=== PATIENT | male | born 1955 | race Caucasian/White ===

== ENCOUNTER 2020-05-10 14:42 | Emergency (ER) | payer SELFPAY ==
[2020-05-10 15:31] VITALS: BP 119/77; PULSE 82; RESP 18; TEMP 36.7; O2SAT 96; BMI 24.6
[2020-05-10 16:10] LABS: Blood Urine Neg (Negative); Glucose Urine UA Norm (Normal); Ketones Urine 1+ (Negative); Nitrate Urine Negative (Negative); Protein Urine Neg (Negative); Urine Appearance Clear (CLEAR); Urine Color Orange (Yellow); pH Urine 5 (5-7)
[2020-05-10 16:11] LABS: Add Urine Microscopic? YES; Bilirubin Urine 2+ (NEGATIVE); Leukocyte Esterase Urine Trace (Negative); Urobilinogen Urine 8 mg/dL (Negative)
[2020-05-10 16:19] LABS: Bacteria Urine TRACE; Mucus Urine 1+; Squamous Epithelial Cell Urine RARE (0-5); WBC Urine 0-4 /hpf (0-5)
[2020-05-10 16:20] LABS: Add Urine Culture? No
[2020-05-10 16:57] LABS: Basophils # 0.1 10^3/uL (0.0-0.1); Basophils % 0.9 %; Eosinophils # 0.5 10^3/uL (0.0-0.8); Eosinophils % 6.6 %; Hematocrit 43.1 % (42.0-52.0); Hemoglobin 14.2 g/dL (11.7-16.6); Lymphocytes # 1.4 10^3/uL (0.8-4.8); Lymphocytes % 16.7 %; Mean Corpuscular HGB Conc 32.9 g/dL (30.0-36.0); Mean Corpuscular Hemoglobin 32.9 pg (28.0-34.0); Mean Corpuscular Volume 99.8 fL (80-94); Mean Platelet Volume 10.1 fL (7.4-10.4); Monocytes # 0.8 10^3/uL (0.2-0.9); Monocytes % 10.4 %; Neutrophils # 5.26 10^3/uL (1.8-7.7); Neutrophils % 65.2 %; Nucleated Red Blood Cells % 0 %; Platelet Count 290 10^3/cmm (130-400); Red Blood Count 4.32 10^6/uL (4.1-5.3); Red Cell Distribution Width 13.5 % (12.1-15.1); White Blood Count 8.1 10^3/uL (4.0-10.0)
[2020-05-10 17:25] LABS: Alanine Aminotransferase 207 U/L (0-41); Albumin Level 4.3 g/dL (3.5-5.2); Alkaline Phosphatase 510 IU/L (40-130); Anion Gap 19.9 (5-19); Aspartate Amino Transferase 327 U/L (0-40); Blood Urea Nitrogen 19 mg/dL (8-23); Calcium 9.1 mg/dL (8.5-10.5); Carbon Dioxide 21 mmol/L (22-29); Chloride 105 mmol/L (98-107); Globulin 2.2 g/dL (1.3-4.6); Glomerular Filtration Rate 67.4 mL/min (90-130); Glucose 92 mg/dL (65-115); Osmolality Calculated 290 mOsm/kg (285-295); Potassium 3.9 mmol/L (3.5-5.1); Sodium 142 mmol/L (136-145); Total Bilirubin 5.2 mg/dL (0.15-1.2); Total Protein 6.5 g/dL (6.6-8.7)
--- NOTE | 2020-05-10 18:33 | XRR_ITS ---
PROCEDURE INFORMATION: Exam: XR Abdomen, 1 View Exam date and time: 05/10/2020 6:34 PM Age: 64 years old Clinical indication: Abnormal findings; Abnormal lab test; Other: Hematuria TECHNIQUE: Imaging protocol: XR of the abdomen. Views: Frontal supine view of the abdomen. 1 View. COMPARISON: CT Abdomen/Pelvis Renal 10407 03/02/2015 8:51 AM FINDINGS: Gastrointestinal tract: Normal. No bowel dilation. There is a moderate amount of colonic stool. No impaction. There are phleboliths in the pelvis. No nephrolithiasis. Bones/joints: Unremarkable. XR/XR KUB [id number] IMPRESSION: No acute findings.
--- NOTE | 2020-05-10 18:43 | W.ED.MALEGU ---
HPI - Male Genitourinary General: Chief complaint: Urogenital-Male Stated complaint: blood in urine Time Seen by Provider: 05/10/20 18:29 History of Present Illness: HPI Narrative: Patient comes in with some mild left flank pain and noticeable blood in the urine. Patient reports he continues to be a little tender in the left flank but thinks that the blood has improved. Patient appears well. Patient appears in mild pain. Review of Systems General: Reports: 10 or more systems reviewed and unremarkable except in HPI and below : Reports: flank pain Physical Exam Const: COMMON NORMALS: no acute distress and patient oriented x3 GENERAL APPEARANCE: cooperative HENMT: COMMON NORMALS: normocephalic and Normal external nose present HEAD & SCALP: normal to inspection and normocephalic NOSE: Normal external nose present MOUTH: Normal oral and palatal mucosa present THROAT: posterior oropharynx normal Eye: GENERAL EYE: appearance normal, both eyes and all related structures Neck/C-Spine: COMMON NORMALS: full ROM Chest: COMMONS NORMALS: normal inspection of the chest Resp: COMMON NORMALS: normal respiratory effort EFFORT & INSPECTION: Yes able to speak in complete sentences Cardio: COMMON NORMALS: regular rate and regular rhythm RATE: regular rate RHYTHM: regular rhythm GI: COMMON NORMALS: non-tender : COMMON NORMALS: Yes no CVA tenderness BLADDER/KIDNEY EXAM: Yes no CVA tenderness Back/Pelvis: COMMON NORMALS: no CVA tenderness and thoracic and lumbar spine normal to inspection Extremity: COMMON NORMALS: normal to inspection Neuro: COMMON NORMALS: patient oriented x3 and moves all extremities Psych: COMMON NORMALS: mental status grossly normal and cooperative Skin: COMMON NORMALS: no rashes or lesions noted GENERAL SKIN EXAM: no rashes or lesions noted Course Vital Signs: Vital signs: Vital Signs Temperature 98.0 F 05/10/20 15:31 Pulse Rate 74 05/10/20 18:54 Respiratory Rate 14 05/10/20 18:54 Blood Pressure 156/83 05/10/20 18:54 Pulse Oximetry 96 05/10/20 18:54 MDM - Male MDM Narrative: Medical decision making narrative: Patient comes in today with complaints of left flank pain, and blood in urine. Patient appears well. Patient appears in no acute distress. Abdomen was soft nontender. Mild left CVA tenderness was noted on palpation. Differential diagnosis includes but not limited to renal calculi, pyelonephritis, urinary tract infection. Laboratory values noted some white blood cells in the urine but no obvious blood. CBC was normal. CMP was unremarkable, except for some elevated liver enzymes. KUB noted some renal calculi on the left side. Patient's history and pain suggest renal colic. Laboratory values is questionable for some mild liver disease or gallbladder disease. Reviewed exam with patient recommendations for treatment and follow-up. Patient reported understanding of care plan. Lab Data: Labs: Lab Results 05/10/20 05/10/20 05/10/20 Range/Units 15:45 16:21 16:21 WBC 8.1 (4.0-10.0) 10^3/ uL RBC 4.32 (4.1-5.3) 10^6/u L Hgb 14.2 (11.7-16.6) g/dL Hct 43.1 (42.0-52.0) % MCV 99.8 H (80-94) fL MCH 32.9 (28.0-34.0) pg MCHC 32.9 (30.0-36.0) g/dL RDW 13.5 (12.1-15.1) % Plt Count 290 (130-400) 10^3/c mm MPV 10.1 (7.4-10.4) fL Neut % (Auto) 65.2 % Lymph % (Auto) 16.7 % [place] % (Auto) 10.4 % Eos % (Auto) 6.6 % Baso % (Auto) 0.9 % Neut # (Auto) 5.26 (1.8-7.7) 10^3/u L Lymph # (Auto) 1.4 (0.8-4.8) 10^3/u L [place] # (Auto) 0.8 (0.2-0.9) 10^3/u L Eos # (Auto) 0.5 (0.0-0.8) 10^3/u L Baso # (Auto) 0.1 (0.0-0.1) 10^3/u L Nucleated RBC % (a uto) 0 % Nucleated RBCs # 0.0 /100WBC Sodium 142 (136-145) mmol/L Potassium 3.9 (3.5-5.1) mmol/L Chloride 105 (98-107) mmol/L Carbon Dioxide 21 L (22-29) mmol/L Anion Gap 19.9 H (5-19) BUN 19 (8-23) mg/dL Creatinine 1.1 (0.7-1.2) mg/dL GFR Calculation 67.4 L (90-130) mL/min Glucose 92 (65-115) mg/dL Calculated Osmolal ity 290 (285-295) mOsm/k g Calcium 9.1 (8.5-10.5) mg/dL Total Bilirubin 5.2 H (0.15-1.2) mg/dL AST 327 H (0-40) U/L ALT 207 H (0-41) U/L Alkaline Phosphata se 510 H (40-130) IU/L Total Protein 6.5 L (6.6-8.7) g/dL Albumin 4.3 (3.5-5.2) g/dL Globulin 2.2 (1.3-4.6) g/dL Urine Color [place] (Yellow) Urine Appearance Clear (CLEAR) Urine pH 5 (5-7) Ur Specific Gravit y 1.020 (1.005-1.030) Urine Protein Neg (Negative) Urine Glucose (UA) Norm (Normal) Urine Ketones 1+ H (Negative) Urine Blood Neg (Negative) Urine Nitrate Negative (Negative) Urine Bilirubin 2+ H (NEGATIVE) Urine Urobilinogen 8 H (Negative) mg/dL Ur Leukocyte Lois ase Trace H (Negative) Urine RBC None (0-2) /hpf Urine WBC 0-4 H (0-5) /hpf Ur Squamous Epith Cells Rare (0-5) Amorphous Sediment Not Reportable Urine Bacteria Trace (NONE) Urine Mucus 1+ Discharge Plan Discharge Patient Disposition: Home Clinical Impression: Renal colic on left side Condition: Stable Prescriptions: New tamsulosin 0.4 mg capsule 0.4 mg PO DAILY Qty: 10 RF: 0 hydrocodone-acetaminophen 5-325 mg tablet 1 tab PO Q6H PRN (Reason: pain) Qty: 10 RF: 0 ondansetron HCl 4 mg tablet 4 mg PO Q8H PRN (Reason: nausea and vomiting) Qty: 7 RF: 0 cephalexin 500 mg capsule 500 mg PO Q8H 7 Days Qty: 21 RF: 0 Discharge Orders: Discharge Order (Routine); Ordered 05/10/20 Ordered By: Aiden Horn Referrals: Bridgett Garay MD [Primary Care Provider] - Discharge Diet: Usual diet Discharge Activity: Increase activity as tolerated Patient Instructions: Kidney Stones (ED) Activity Restrictions/Additional Instructions: Drink plenty of fluids. Take medications as directed. Follow-up with urologist for further treatment. Case management order was placed to help with follow-up with the urologist. Return to the emergency department for high fever or uncontrolled symptoms. Follow-up with primary care as needed. Discharge Date/Time: 05/10/20 18:55 Coding Level of Care Code ED Supply Aide for Chg Fwd Exam Comprehensive
[2020-05-10 18:54] VITALS: BP 156/83; PULSE 74; RESP 14; O2SAT 96
== END 2020-05-10 18:55 | disposition home or self-care (01) ==
PROVIDERS: Family Medicine; Emergency Provider Nurse Practitioner Family; PCP Family Medicine
DX: N23 Unspecified renal colic (principal)
CPT/HCPCS: 12345; 36415; 74018; 80053; 81001; 85025; 99281; 99283

== ENCOUNTER 2020-11-21 11:38 | Outpatient (CLI) | payer MEDICARE, SELFPAY ==
--- NOTE | 2020-11-21 11:52 | XR_ITS ---
WS: [id number] Exam: XR chest 2V* [id number] Date/Time of Exam: 11/21/2020 11:52 AM Reason For Exam: PECTUS EXCAVATUM/DYSPNEA ON EXERTION Comparison 08/15/2016. The lungs are hyperinflated and clear. Unremarkable cardiomediastinal structures. Several old left ri b fractures are noted. No pleural effusions. Pectus excavatum deformity. Increased thoracic kyphosis. XR/XR chest 2V* [id number] IMPRESSION: 1. No acute cardiopulmonary finding. 2. Pectus excavatum.
== END 2020-11-21 11:39 | disposition home or self-care (01) ==
PROVIDERS: PCP Family Medicine; Visit Provider Nurse Practitioner Family
DX: R06.09 Other forms of dyspnea (principal); Q67.6 Pectus excavatum
CPT/HCPCS: 71046

== ENCOUNTER 2022-06-03 12:57 | Outpatient (CLI) | payer MEDICARE, SELFPAY ==
--- NOTE | 2022-06-03 13:35 | PFTS_ITS ---
Date of Study:06/03/22 Date of Dictation: MECHANICS: Forced vital capacity (FVC) is . Forced expiratory volume in one second (FEV1) is . FEV1/FVC is . FLOW VOLUME LOOP: . LUNG VOLUMES: Total lung capacity (TLC) is . Residual volume (RV) is . DIFFUSING CAPACITY FOR CARBON MONOXIDE: . INTERPRETATION: The pulmonary function tests are . mechanics and lung volumes. Gas exchange (DLCO) is . MTDD
== END 2022-06-03 12:58 | disposition home or self-care (01) ==
LOC: RT 12:59
PROVIDERS: PCP Family Medicine; Visit Provider Family Medicine
DX: R09.3 Abnormal sputum (principal); R06.09 Other forms of dyspnea
CPT/HCPCS: 94060; J7611

== ENCOUNTER 2022-07-05 11:42 | Emergency (ER) | payer MEDICARE, SELFPAY ==
[2022-07-05 11:46] VITALS: BP 115/78; PULSE 99; RESP 18; TEMP 36.6; O2SAT 98; BMI 251.7
--- NOTE | 2022-07-05 12:02 | XRR_ITS ---
PROCEDURE INFORMATION: Exam: XR Chest Exam date and time: 07/05/2022 12:24 PM Age: 66 years old Clinical indication: Shortness of breath; Additional info: SOB, dizziness TECHNIQUE: Imaging protocol: Radiologic exam of the chest. Views: 2 views. COMPARISON: CR XR chest 2V* [id number] 11/21/2020 12:11 PM FINDINGS: Lungs: Unremarkable. No consolidation. Pleural spaces: Unremarkable. No pleural effusion. No pneumothorax. Heart/Mediastinum: Unremarkable. No cardiomegaly. Bones/joints: There is generalized osteopenia seen. The dorsal spine shows 2 mid dorsal spine compression fractures. These findings were present on prior examination. There is chronic left rib fractures present stable since prior rib 5 and 6. XR/XR chest 2V* [id number] IMPRESSION: 1. No acute findings. 2. Severe dorsal spine osteopenia. 3. Mid dorsal spine fractures. 4. Multiple chronic left post rib fractures.
--- NOTE | 2022-07-05 12:03 | ECG_ITS ---
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 Measurements Intervals [place] Rate: 92 P: 66 MA: 158 QRS: -52 QRSD: 70 T: 75 QT: 345 QTc: 427 Interpretive Statements SINUS RHYTHM WITH OCCASIONAL ECTOPIC PREMATURE COMPLEXES LOW QRS VOLTAGE IN PRECORDIAL LEADS [QRS DEFLECTION < 1.0 mV IN CHEST LEADS] LEFT ANTERIOR FASCICULAR BLOCK [QRS AXIS <= -45, QR IN I, RS IN II] Compared to ECG 08/15/2016 16:36:37 Left anterior fascicular block now present T-wave abnormality no longer present Electronically Signed On 07-05-2022 21:21:35 CDT by Gisele Real M.D. [id number] f
--- NOTE | 2022-07-05 12:05 | ED_ITS ---
HPI - Dizziness General: Chief Complaint: Dizziness Stated Complaint: Chest Pain Time Seen by Provider: 07/05/22 11:55 History of Present Illness: HPI Narrative: 66-year-old male presents with complaints of dizziness. Patient reports that he describes the dizziness as a feeling of syncope. Every time he stands up he feels like he is going to pass out. Patient complains that he has had some mild chest pain on and off but he has reflux and seems similar to that. He is not currently having chest pain. Patient has some mild shortness of breath. He does have a history of COPD and just was started on Symbicort. Patient denies any fever or chills. He does have some congestion and reports that he feels like he just got over an upper respiratory illness. Patient reports that if he moves his head or sitting there he does not have his symptoms only when he stands. Associated symptoms: Reports chest pain and nasal congestion; Denies chills, headache(s), nausea, palpitations or vomiting Associated neuro symptoms: Deny numbness in extremities Review of Systems Const: Reports: fatigue; Denies: fever(s) or chills Eyes: Denies: change in vision or blurry vision ENMT: Reports: nasal congestion; Denies: throat pain Card: Reports: chest pain and pre-syncope; Denies: palpitations or irregular heart rhythm Resp: Reports: dyspnea and chest congestion; Denies: wheezing GI: Denies: abdominal pain, nausea or vomiting Musc: Denies: neck pain or back pain Skin/Breast: Denies: rash Neuro: Reports: weakness in extremities; Denies: headache(s), numbness in extremities or lack of coordination Psych: Denies: anxiety or depression Physical Exam Const: COMMON NORMALS: no acute distress, average body habitus and patient oriented x3 HENMT: COMMON NORMALS: normocephalic, atraumatic and hearing grossly normal bilaterally HEAD & SCALP: normocephalic and atraumatic Eye: COMMON NORMALS: Equal, round and reactive pupils present and EOMs intact bilaterally PUPIL: Yes Equal, round and reactive pupils present Neck/C-Spine: COMMON NORMALS: no JVD Resp: COMMON NORMALS: normal respiratory effort, No retractions and No use of accessory muscles AUSCULTATION: diminished lung sounds (Mild diffuse) Cardio: COMMON NORMALS: no JVD and regular rate RATE: regular rate GI: COMMON NORMALS: Soft to palpation and non-tender PALPATION: Yes Soft to palpation Extremity: COMMON NORMALS: normal to inspection, full ROM and capillary refill normal Neuro: COMMON NORMALS: patient oriented x3, moves all extremities and no focal motor deficits Psych: COMMON NORMALS: Normal thought process present and cooperative THOUGHT PROCESS: Normal thought process present Skin: COMMON NORMALS: no rashes or lesions noted and no wounds GENERAL SKIN EXAM: no rashes or lesions noted Course Vital Signs: Vital signs: Vital Signs Temperature 97.8 F 07/05/22 11:46 Pulse Rate 80 07/05/22 13:29 Respiratory Rate 16 07/05/22 13:26 Blood Pressure 113/75 07/05/22 12:37 Pulse Oximetry 95 07/05/22 13:26 Oxygen Delivery Me thod 07/05/22 13:26 MDM - Dizziness Medical Decision Making Patient is feeling significant better following treatment with a breathing treatment some IV fluids. He request discharge home. Patient with no troponin changes. Labs show no acute findings. 2 EKG shows no significant changes. Recommend patient follow-up with a primary care provider in the next couple days. Patient stable discharged home Lab Data : 07/05/22 12:25 07/05/22 12:25 Radiology Impressions Chest X-Ray 07/05/22 12:02 IMPRESSION: 1. No acute findings. 2. Severe dorsal spine osteopenia. 3. Mid dorsal spine fractures. 4. Multiple chronic left post rib fractures. Laboratory Results WBC 10.2 10^3/uL (4.0-10.0) H 07/05/22 12:25 RBC 4.96 10^6/uL (4.1-5.3) 07/05/22 12:25 Hgb 16.8 g/dL (11.7-16.6) H 07/05/22 12:25 Hct 48.4 % (42.0-52.0) 07/05/22 12:25 MCV 97.6 fl (80-94) H 07/05/22 12:25 MCH 33.9 pg (28.0-34.0) 07/05/22 12:25 MCHC 34.7 g/dL (30.0-36.0) 07/05/22 12:25 RDW 11.8 % (12.1-15.1) L 07/05/22 12:25 Plt Count 270 10^3/cmm (130-400) 07/05/22 12:25 MPV 9.8 fL (7.4-10.4) 07/05/22 12:25 Neut % (Auto) 74.3 % 07/05/22 12:25 Lymph % (Auto) 16.8 % 07/05/22 12:25 [place] % (Auto) 8.1 % 07/05/22 12:25 Eos % (Auto) 0.1 % 07/05/22 12:25 Baso % (Auto) 0.4 % 07/05/22 12:25 Neut # (Auto) 7.54 10^3/uL (1.8-7.7) 07/05/22 12:25 Lymph # (Auto) 1.7 10^3/uL (0.8-4.8) 07/05/22 12:25 [place] # (Auto) 0.8 10^3/uL (0.2-0.9) 07/05/22 12:25 Eos # (Auto) 0.0 10^3/uL (0.0-0.8) 07/05/22 12:25 Baso # (Auto) 0.0 10^3/uL (0.0-0.1) 07/05/22 12:25 Nucleated RBC % (auto) 0 % 07/05/22 12:25 Nucleated RBCs # 0.0 /100WBC 07/05/22 12:25 Sodium 138 mmol/L (136-145) 07/05/22 12:25 Potassium 3.9 mmol/L (3.5-5.1) 07/05/22 12:25 Chloride 105 mmol/L (98-107) 07/05/22 12:25 Carbon Dioxide 20 mmol/L (22-29) L 07/05/22 12:25 Anion Gap 16.9 (5-19) 07/05/22 12:25 BUN 15 mg/dL (8-23) 07/05/22 12:25 Creatinine 0.8 mg/dL (0.7-1.2) 07/05/22 12:25 GFR Calculation 96.7 mL/min (90-130) 07/05/22 12:25 Glucose 83 mg/dL (65-115) 07/05/22 12:25 Calculated Osmolality 286 mOsm/kg (285-295) 07/05/22 12:25 Calcium 9.0 mg/dL (8.5-10.5) 07/05/22 12:25 Magnesium 1.8 mg/dL (1.7-2.3) 07/05/22 12:25 Total Bilirubin 0.6 mg/dL (0.15-1.2) 07/05/22 12:25 AST 19 U/L (0-40) 07/05/22 12:25 ALT 14 U/L (0-41) 07/05/22 12:25 Alkaline Phosphatase 74 U/L (40-130) 07/05/22 12:25 Troponin T Baseline 14 ng/L (0-15) 07/05/22 12:25 Troponin T 120 Minute 13.96 ng/L (0-15) 07/05/22 14:14 C-Reactive Protein 3.0 mg/L (0.0-4.9) 07/05/22 12:25 Total Protein 6.2 g/dL (6.6-8.7) L 07/05/22 12:25 Albumin 3.9 g/dL (3.5-5.2) 07/05/22 12:25 Globulin 2.3 g/dL (1.3-4.6) 07/05/22 12:25 EKG Data EKG 1: I personally reviewed and interpreted this EKG as follows: EKG interpretation date: 07/05/22 EKG interpretation time: 12:04 Interpretation: Ventricular rate 92, sinus rhythm, ectopic premature complexes. MA 158, QTc 394., Left ventricular fascicular block. No acute ST or T wave changes EKG 2: I personally reviewed and interpreted this EKG as follows: EKG interpretation date: 07/05/22 EKG interpretation time: 14:38 Interpretation: Heart rate 77, sinus rhythm, occasional premature complexes, no significant changes from prior EKG. MA 165 QRS 73 QTc 422. Discharge Plan Discharge Condition: Stable Prescriptions: No Action NyQuil 7.5-60-30-1,000 mg/30 mL Liquid 30 ml PO Q4H PRN (Reason: unknown) Tylenol Ex Str Rapid Release 500 mg Tablet 1,000 mg PO Q6H PRN (Reason: Pain) famotidine 20 mg tablet 20 mg PO QAM cyclobenzaprine 5 mg tablet 5 mg PO TID PRN (Reason: Muscle Spasm) Symbicort 160-4.5 mcg/actuation HFA aerosol inhaler 2 puff INHALATION BID Referrals: Autumn Roman DO [Primary Care Provider] - Coding Level of Care Code ED Arch Cushion Press Operator for Chg Fwd Exam Comprehensive
[2022-07-05 12:35] LABS: Basophils % 0.4 %; Eosinophils % 0.1 %; Hematocrit 48.4 % (42.0-52.0); Hemoglobin 16.8 g/dL (11.7-16.6); Lymphocytes # 1.7 10^3/uL (0.8-4.8); Lymphocytes % 16.8 %; Mean Corpuscular HGB Conc 34.7 g/dL (30.0-36.0); Mean Corpuscular Hemoglobin 33.9 pg (28.0-34.0); Mean Corpuscular Volume 97.6 fl (80-94); Mean Platelet Volume 9.8 fL (7.4-10.4); Monocytes # 0.8 10^3/uL (0.2-0.9); Monocytes % 8.1 %; Neutrophils # 7.54 10^3/uL (1.8-7.7); Neutrophils % 74.3 %; Nucleated Red Blood Cells % 0 %; Platelet Count 270 10^3/cmm (130-400); Red Blood Count 4.96 10^6/uL (4.1-5.3); Red Cell Distribution Width 11.8 % (12.1-15.1); White Blood Count 10.2 10^3/uL (4.0-10.0)
[2022-07-05 12:37] VITALS: BP 113/75; PULSE 91; RESP 19; O2SAT 94
[2022-07-05 12:55] LABS: Alanine Aminotransferase 14 U/L (0-41); Albumin Level 3.9 g/dL (3.5-5.2); Alkaline Phosphatase 74 U/L (40-130); Blood Urea Nitrogen 15 mg/dL (8-23); Carbon Dioxide 20 mmol/L (22-29); Chloride 105 mmol/L (98-107); Globulin 2.3 g/dL (1.3-4.6); Glomerular Filtration Rate 96.7 mL/min (90-130); Glucose 83 mg/dL (65-115); Magnesium 1.8 mg/dL (1.7-2.3); Osmolality Calculated 286 mOsm/kg (285-295); Sodium 138 mmol/L (136-145); Total Bilirubin 0.6 mg/dL (0.15-1.2); Total Protein 6.2 g/dL (6.6-8.7)
[2022-07-05 12:58] LABS: Troponin(5th) Baseline 14 ng/L (0-15)
[2022-07-05 13:01] LABS: Anion Gap 16.9 (5-19); Potassium 3.9 mmol/L (3.5-5.1)
[2022-07-05 13:02] LABS: Aspartate Amino Transferase 19 U/L (0-40)
[2022-07-05] MEDS: ipratropium-albuterol 3 mL Neb INHALATION (13:25)
[2022-07-05 13:26] VITALS: PULSE 72; RESP 16; O2SAT 95
[2022-07-05 13:29] VITALS: PULSE 80
[2022-07-05] MEDS: sodium chloride 0.9% 1,000 ML 999 ML IV (13:33)
--- NOTE | 2022-07-05 14:03 | ECG_ITS ---
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 Measurements Intervals [place] Rate: 77 P: 72 AK: 165 QRS: 27 QRSD: 73 T: 66 QT: 390 QTc: 443 Interpretive Statements SINUS RHYTHM WITH OCCASIONAL ECTOPIC PREMATURE COMPLEXES SEPTAL MYOCARDIAL INFARCTION , OF INDETERMINATE AGE [40+ ms Q WAVE IN V1/V2] Compared to ECG 08/15/2016 16:36:37 Myocardial infarct finding now present T-wave abnormality no longer present Electronically Signed On 07-05-2022 21:33:59 CDT by Gisele Real M.D. [id number]
[2022-07-05 14:39] LABS: Troponin 5 2HR 13.96 ng/L (0-15)
[2022-07-05 15:04] VITALS: BP 102/75; PULSE 80; O2SAT 96
[2022-07-05 16:16] LABS: Troponin 5 2HR Delta -0.04 ABS# (0-10)
== END 2022-07-05 15:05 | disposition home or self-care (01) ==
PROVIDERS: Emergency Provider Student in an Organized Health Care Education/Training Program; PCP Family Medicine
DX: R07.9 Chest pain, unspecified (principal); R42 Dizziness and giddiness
CPT/HCPCS: 36415; 71046; 80053; 83735; 84484; 85025; 86140; 93005; 94640; 96360; 99285; J7030

== ENCOUNTER 2022-10-24 05:50 | Observation (INO) | payer MEDICARE, SELFPAY ==
[2022-10-24] VITALS (31 sets, daily range): BP systolic 90–140; BP diastolic 49–91; PULSE 57–150; RESP 13–25; TEMP 36.9–37.1; O2SAT 93–100; BMI 24.3; BMI 26.2
--- NOTE | 2022-10-24 05:51 | XRR_ITS ---
PROCEDURE INFORMATION: Exam: XR Chest Exam date and time: 10/24/2022 6:08 AM Age: 67 years old Clinical indication: Pain; Chest pressure; Additional info: Cp TECHNIQUE: Imaging protocol: Radiologic exam of the chest. Views: 1 view. COMPARISON: CR XR chest 2V* [id number] 07/05/2022 12:24 PM FINDINGS: Lungs: Emphysema. Lungs are well aerated without a focal area of consolidation. Pleural spaces: Unremarkable. No pleural effusion. No pneumothorax. Heart/Mediastinum: Unremarkable. No cardiomegaly. Bones/joints: Unremarkable. XR/XR chest 1V portable [id number] IMPRESSION: Lungs are well aerated without a focal area of consolidation.
--- NOTE | 2022-10-24 05:57 | ECG_ITS ---
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 Measurements Intervals [place] Rate: 165 P: 0 SD: 0 QRS: 33 QRSD: 71 T: 104 QT: 274 QTc: 454 Interpretive Statements ATRIAL FIBRILLATION WITH RAPID VENTRICULAR RESPONSE WITH ABERRANT CONDUCTION OR VENTRICULAR PREMATURE COMPLEXES LOW QRS VOLTAGE [QRS DEFLECTION < 0.5/1.0 mV IN LIMB/CHEST LEADS] SEPTAL MYOCARDIAL INFARCTION , OF INDETERMINATE AGE [40+ ms Q WAVE IN V1/V2] CRITICAL TEST RESULT Compared to ECG 07/05/2022 14:37:19 Ventricular premature complex(es) now present Aberrant conduction of supraventricular beat(s) now present Low QRS voltage now present Sinus rhythm no longer present Myocardial infarct finding still present Electronically Signed On 10-24-2022 11:19:22 BEAN SNAPPER by Randy Melton M.D. [id number]
[2022-10-24] MEDS: dilTIAZem 5 mg/mL SDV 5 mL 10 MG IVP (06:14)
[2022-10-24] MEDS: sodium chloride 0.9% 1,000 ML 999 ML IV ×2 (06:14→08:38)
[2022-10-24] MEDS: dilTIAZem 100 MG in sodium chloride 0.9% (add-van) 100 ML IV (06:24)
[2022-10-24 06:29] LABS: Basophils # 0.1 10^3/uL (0.0-0.1); Basophils % 0.7 %; Eosinophils % 0.4 %; Hematocrit 48.5 % (42.0-52.0); Hemoglobin 16.6 g/dL (11.7-16.6); Lymphocytes # 2.2 10^3/uL (0.8-4.8); Mean Corpuscular HGB Conc 34.2 g/dL (30.0-36.0); Mean Corpuscular Hemoglobin 34.4 pg (28.0-34.0); Mean Corpuscular Volume 100.4 fl (80-94); Mean Platelet Volume 9.8 fL (7.4-10.4); Monocytes # 0.7 10^3/uL (0.2-0.9); Monocytes % 10.3 %; Neutrophils % 57.5 %; Nucleated Red Blood Cells % 0 %; Platelet Count 216 10^3/cmm (130-400); Red Blood Count 4.83 10^6/uL (4.1-5.3); Red Cell Distribution Width 11.6 % (12.1-15.1)
[2022-10-24 06:50] LABS: Troponin(5th) Baseline 17 ng/L (0-15)
[2022-10-24 07:00] LABS: Alanine Aminotransferase 19 U/L (0-41); Albumin Level 4.5 g/dL (3.5-5.2); Alkaline Phosphatase 82 U/L (40-130); Anion Gap 23.1 (5-19); Aspartate Amino Transferase 45 U/L (0-40); Blood Urea Nitrogen 20 mg/dL (8-23); Calcium 9.8 mg/dL (8.5-10.5); Carbon Dioxide 21 mmol/L (22-29); Chloride 97 mmol/L (98-107); Creatine Phosphokinase 178 U/L (39-308); Globulin 2.3 g/dL (1.3-4.6); Glomerular Filtration Rate 96.4 mL/min (90-130); Glucose 118 mg/dL (65-115); NT Pro B Type Natriuretic Pept 308 pg/mL (0-125); Osmolality Calculated 288 mOsm/kg (285-295); Potassium 4.1 mmol/L (3.5-5.1); Sodium 137 mmol/L (136-145); Total Bilirubin 0.6 mg/dL (0.15-1.2); Total Protein 6.8 g/dL (6.6-8.7)
--- NOTE | 2022-10-24 07:00 | ED_ITS ---
HPI - Chest Pain General: Chief Complaint: Chest Pain Stated Complaint: CP Time Seen by Provider: 10/24/22 06:08 History of Present Illness: This patient is a 67 year old presenting with chest pain, near syncope. His symptoms woke him from sleep at around midnight. He can feel his heart racing. He has had chest pain before - but never the heart racing. He says that he has not had the feeling like he is going to pass out before, but was seen her in June with chest pain and reported the same feeling of nearly passing out on that visit. He says that he was told he had bad heartburn at that time. He has never had a stress test. He feels short of breath. He denies fever, cough. He has a history of COPD - denies smoking, but did smoke in the past. He denies other medical history - denies HTN, DM. Denies recent illness. Physical Exam Const: COMMON NORMALS: patient oriented x3, no limitations and alert GENERAL APPEARANCE: cooperative and anxious HENMT: HEAD & SCALP: normal to inspection FACE & SINUS: normal facial exam Eye: GENERAL EYE: appearance normal, both eyes and all related structures Neck/C-Spine: COMMON NORMALS: supple, no meningeal signs and no JVD Chest: COMMONS NORMALS: normal inspection of the chest Resp: EFFORT & INSPECTION: Yes tachypneic AUSCULTATION: wheezes scattered wheezes and upper bilaterally Cardio: COMMON NORMALS: no JVD, No murmurs present (Cardio) and Peripheral pulses 2+ throughout RATE: tachycardic RHYTHM: abnormal rhythm irregularly irregular PERIPHERAL PULSES: Peripheral pulses 2+ throughout GI: COMMON NORMALS: Normal to inspection, nondistended, normoactive bowel sounds present, Soft to palpation and non-tender INSPECTION: Yes normal to inspection AUSCULTATION: Yes normoactive bowel sounds PALPATION: Yes Soft to palpation Back/Pelvis: COMMON NORMALS: thoracic and lumbar spine normal to inspection Extremity: COMMON NORMALS: normal to inspection and no pedal edema Neuro: COMMON NORMALS: patient oriented x3, moves all extremities, no focal motor deficits and no sensory deficits noted SENSORIUM/ORIENTATION: Yes alert MENINGEAL SIGNS: Yes no meningeal signs Psych: COMMON NORMALS: mental status grossly normal, cooperative and normal affect Skin: COMMON NORMALS: no rashes or lesions noted and turgor normal GENERAL SKIN EXAM: no rashes or lesions noted and turgor normal Course Vital Signs: Vital signs: Vital Signs Temperature 98.7 F 10/24/22 05:55 Pulse Rate 77 10/24/22 09:49 Respiratory Rate 14 10/24/22 09:49 Blood Pressure 95/54 10/24/22 09:49 Pulse Oximetry 96 10/24/22 09:49 Oxygen Delivery Me thod 10/24/22 09:49 MDM - Chest Pain Medical Decision Making Patient with Afib and RVR, associated with chest pain on going since midnight. Symptomatic orthostasis which does not fully resolve with laying down. Initial BP 140, repeats in the 90's and at times in the 80's. IV fluids started, then cardizem - small doses due to low BP. HR down from 160 - 120's. BP remaining 80's to 90's. Sat 99% and CP improved somewhat. Patient was given 2 liters of fluid while on the cardizem drip - to help maintain his BP. His mental status remained good. He did convert to sinus rhythm - no evidence of ischemia on repeat EKG and neg troponin and delta. He reported that his CP resolved, but he continued to feel badly. His BP continued to run low - 90 to 110. I looked at prior visits and his baseline BPs are 130 - 140 systolic. He sees a PCP at [facility]. He has not had a cardiac evaluation other than the ED evaluation in June. Due to his persistent hypotension after 2 liters of fluid and conversion to sinus rhythm, I added a lactic and CT chest for PE, CT abd/pelvis to look for evidence of infection - all that was negative for acute findings. Due to his severe symptoms on presentation, and continued hypotension and malaise in the ED, I plan to admit to the hospitalist for further evaluation. Dr. Pelaez accepted for the CSU. He is not currently on cardizem due to the low BP, and in light that he converted to sinus. Lab Data 10/24/22 06:00 10/24/22 06:00 Radiology Impressions Chest X-Ray 10/24/22 05:51 IMPRESSION: Lungs are well aerated without a focal area of consolidation. Chest/Abdomen/Pelvis CT 10/24/22 08:40 IMPRESSION: 1. No dissection. No visualized embolism as characterized to the segmental level. 2. Apical fibrosis. Paraseptal emphysema. Minimal atelectasis right lung base greater than left. No focal consolidation. IMPRESSION: 1. Appendix normal. 2. No acute intra-abdominal process. No inflammatory process. No obstruction. 3. No free fluid within the pelvis or within the dependent portions of the peritoneum. COMMENTS: Consistent with the [place] [employer]'s Incidental Findings Committee white paper (J Am Britney Radiol 2018): Any incidental renal lesion less than 1 cm or classified as too small to characterize, or any incidental cystic renal lesion characterized as simple-appearing, is likely benign. No follow-up imaging is recommended for these lesions per consensus recommendations based on imaging criteria. Laboratory Results WBC 7.0 10^3/uL (4.0-10.0) 10/24/22 06:00 RBC 4.83 10^6/uL (4.1-5.3) 10/24/22 06:00 Hgb 16.6 g/dL (11.7-16.6) 10/24/22 06:00 Hct 48.5 % (42.0-52.0) 10/24/22 06:00 MCV 100.4 fl (80-94) H 10/24/22 06:00 MCH 34.4 pg (28.0-34.0) H 10/24/22 06:00 MCHC 34.2 g/dL (30.0-36.0) 10/24/22 06:00 RDW 11.6 % (12.1-15.1) L 10/24/22 06:00 Plt Count 216 10^3/cmm (130-400) 10/24/22 06:00 MPV 9.8 fL (7.4-10.4) 10/24/22 06:00 Neut % (Auto) 57.5 % 10/24/22 06:00 Lymph % (Auto) 31.0 % 10/24/22 06:00 [place] % (Auto) 10.3 % 10/24/22 06:00 Eos % (Auto) 0.4 % 10/24/22 06:00 Baso % (Auto) 0.7 % 10/24/22 06:00 Neut # (Auto) 4.00 10^3/uL (1.8-7.7) 10/24/22 06:00 Lymph # (Auto) 2.2 10^3/uL (0.8-4.8) 10/24/22 06:00 [place] # (Auto) 0.7 10^3/uL (0.2-0.9) 10/24/22 06:00 Eos # (Auto) 0.0 10^3/uL (0.0-0.8) 10/24/22 06:00 Baso # (Auto) 0.1 10^3/uL (0.0-0.1) 10/24/22 06:00 Nucleated RBC % (auto) 0 % 10/24/22 06:00 Nucleated RBCs # 0.0 /100WBC 10/24/22 06:00 Sodium 137 mmol/L (136-145) 10/24/22 06:00 Potassium 4.1 mmol/L (3.5-5.1) 10/24/22 06:00 Chloride 97 mmol/L (98-107) L 10/24/22 06:00 Carbon Dioxide 21 mmol/L (22-29) L 10/24/22 06:00 Anion Gap 23.1 (5-19) H 10/24/22 06:00 BUN 20 mg/dL (8-23) 10/24/22 06:00 Creatinine 0.8 mg/dL (0.7-1.2) 10/24/22 06:00 GFR Calculation 96.4 mL/min (90-130) 10/24/22 06:00 Glucose 118 mg/dL (65-115) H 10/24/22 06:00 Calculated Osmolality 288 mOsm/kg (285-295) 10/24/22 06:00 Lactic Acid 2.0 mmol/L (0.5-2.2) 10/24/22 09:15 Calcium 9.8 mg/dL (8.5-10.5) 10/24/22 06:00 Total Bilirubin 0.6 mg/dL (0.15-1.2) 10/24/22 06:00 AST 45 U/L (0-40) H 10/24/22 06:00 ALT 19 U/L (0-41) 10/24/22 06:00 Alkaline Phosphatase 82 U/L (40-130) 10/24/22 06:00 Creatine Kinase 178 U/L (39-308) 10/24/22 06:00 Troponin T Baseline 17 ng/L (0-15) H 10/24/22 06:00 Troponin T 120 Minute 16.87 ng/L (0-15) H 10/24/22 07:49 Delta Troponin T -0.13 ABS# (0-10) L 10/24/22 07:49 NT-Pro-B Natriuret Pep 308 pg/mL (0-125) H 10/24/22 06:00 Total Protein 6.8 g/dL (6.6-8.7) 10/24/22 06:00 Albumin 4.5 g/dL (3.5-5.2) 10/24/22 06:00 Globulin 2.3 g/dL (1.3-4.6) 10/24/22 06:00 Lipase 45 U/L (13-60) 10/24/22 06:00 Critical Care Time Critical Care Time: Critical Care Time: Yes Total Critical Care Time: 40 Attestation: See MDM notes above for course of treatment, management of life threatening condition Discharge Plan Discharge Patient Disposition: Placed in Observation Admit Provider: Spencer Parker Clinical Impression: Chest pain, Near syncope, Atrial fibrillation with rapid ventricular response, Atrial fibrillation, new onset, Acute hypotension Condition: Stable Coding Level of Care Code ED Mixer And Scaler for Jani Fwd Exam Comprehensive
--- NOTE | 2022-10-24 07:32 | ECG_ITS ---
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 Measurements Intervals [place] Rate: 113 P: 0 MS: 0 QRS: 0 QRSD: 0 T: 153 QT: 245 QTc: 337 Interpretive Statements SINUS RHYTHM INDETERMINATE AXIS MODERATE ST DEPRESSION [0.05+ mV ST DEPRESSION] ABNORMAL QRS-T ANGLE [QRS-T AXIS DIFFERENCE > 60] Compared to ECG 10/24/2022 05:59:13 Indeterminate axis now present ST (T wave) deviation now present Atrial fibrillation no longer present Myocardial infarct finding no longer present Electronically Signed On 10-24-2022 11:19:02 STORE CUSTODIAN by Randy Melton M.D. [id number]
--- NOTE | 2022-10-24 07:51 | ECG_ITS ---
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 Measurements Intervals [place] Rate: 82 P: 142 IA: 203 QRS: 12 QRSD: 149 T: 40 QT: 405 QTc: 474 Interpretive Statements SINUS RHYTHM INTRAVENTRICULAR CONDUCTION DELAY [130+ ms QRS DURATION] Compared to ECG 10/24/2022 07:32:24 Intraventricular conduction delay now present Supraventricular tachycardia no longer present Indeterminate axis no longer present ST (T wave) deviation no longer present Electronically Signed On 10-24-2022 11:31:43 SPEEDER OPERATOR by Randy Melton M.D. [id number]
[2022-10-24 08:19] LABS: Troponin 5 2HR 16.87 ng/L (0-15)
[2022-10-24] MEDS: ondansetron 2 mg/ML SDV 2 mL 4 MG IVP (08:38)
--- NOTE | 2022-10-24 08:40 | CTR_ITS ---
PROCEDURE INFORMATION: Exam: CTA Chest With Contrast Exam date and time: 10/24/2022 8:47 AM Age: 67 years old Clinical indication: Abdominal pain; Generalized; Angina pectoris; Additional info: Hypotension, chest pain TECHNIQUE: Imaging protocol: Computed tomographic angiography of the chest with contrast. 3D rendering (Not supervised by radiologist): MIP and/or 3D reconstructed images were created by the technologist. Radiation optimization: All CT scans at this facility use at least one of these dose optimization techniques: automated exposure control; mA and/or kV adjustment per patient size (includes targeted exams where dose is matched to clinical indication); or iterative reconstruction. Contrast material: OMNI 350; Contrast volume: 100 ml; Contrast route: INTRAVENOUS (IV); Other protocol: This patient has received [address] and 0 known cardiac nuclear medicine studies in the 12 months prior to the current study. COMPARISON: CR (CHEST, ) 10/24/2022 6:08 AM RADIATION DOSE METRICS: Total DLP (mGy-cm): 869.25 FINDINGS: Pulmonary arteries: Normal. No pulmonary emboli. Aorta: Calcification of the aorta. Lungs: Apical fibrosis. Paraseptal emphysema. Pleural spaces: Unremarkable. No pneumothorax. No pleural effusion. Heart: No pericardial effusion Mediastinal space: thoracic inlet is unremarkable. Lymph nodes: Numerous small nonspecific lymph nodes in the mediastinum Bones/joints: Pectus excavatum. Degenerative changes are present within the spine. Numerous old rib fractures on the left posteriorly. Severe compression fracture anterior and middle columns of T7 and to a lesser degree T6. No retropulsed fragment. Soft tissues: Soft tissues of the mediastinum appear unremarkable. Other findings: No dissection. No visualized embolism as characterized to the segmental level. COMMENTS: In the absence of a history or active diagnosis of lung cancer, it is recommended that this patient with emphysema be evaluated for enrollment in a low dose CT lung cancer screening program. PROCEDURE INFORMATION: Exam: CT Abdomen And Pelvis With Contrast Exam date and time: 10/24/2022 8:47 AM Age: 67 years old Clinical indication: Abdominal pain; Generalized; Angina pectoris; Additional info: Hypotension, chest pain TECHNIQUE: Imaging protocol: Computed tomography of the abdomen and pelvis with contrast. Radiation optimization: All CT scans at this facility use at least one of these dose optimization techniques: automated exposure control; mA and/or kV adjustment per patient size (includes targeted exams where dose is matched to clinical indication); or iterative reconstruction. Contrast material: OMNI 350; Contrast volume: 100 ml; Contrast route: INTRAVENOUS (IV); Other protocol: This patient has received [address] and 0 known cardiac nuclear medicine studies in the 12 months prior to the current study. COMPARISON: CR XR KUB [id number] 05/10/2020 6:33 PM RADIATION DOSE METRICS: Total DLP (mGy-cm): 869.25 FINDINGS: Liver: Normal. No mass. Gallbladder and bile ducts: Normal. No calcified stones. No ductal dilation. Pancreas: Normal. No ductal dilation. Spleen: Normal. No splenomegaly. Adrenal glands: Nodularity left adrenal gland. 15 mm. Hounsfield units 29. Indeterminate. Kidneys and ureters: 1 cm cyst lower pole right kidney Stomach and bowel: Unremarkable. No obstruction. No mucosal thickening. Appendix: Appendix normal. Intraperitoneal space: No acute intra-abdominal process. No inflammatory process. No obstruction. No free fluid within the pelvis or within the dependent portions of the peritoneum. Vasculature: Flow within the superior mesenteric artery, celiac trunk and inferior mesenteric arteries. Lymph nodes: Unremarkable. No enlarged lymph nodes. Urinary bladder: Unremarkable as visualized. Reproductive: Calcifications of the seminal vesicles suggestive of diabetes mellitus. Correlate. Bones/joints: Unremarkable. No acute fracture. Soft tissues: Pectoralis excavatum. Fat containing inguinal hernia on the right CT/CT angio chest w abd pel w con IMPRESSION: 1. No dissection. No visualized embolism as characterized to the segmental level. 2. Apical fibrosis. Paraseptal emphysema. Minimal atelectasis right lung base greater than left. No focal consolidation. IMPRESSION: 1. Appendix normal. 2. No acute intra-abdominal process. No inflammatory process. No obstruction. 3. No free fluid within the pelvis or within the dependent portions of the peritoneum. COMMENTS: Consistent with the [place] [employer]'s Incidental Findings Committee white paper (J Am Britney Radiol 2018): Any incidental renal lesion less than 1 cm or classified as too small to characterize, or any incidental cystic renal lesion characterized as simple-appearing, is likely benign. No follow-up imaging is recommended for these lesions per consensus recommendations based on imaging criteria.
[2022-10-24] MEDS: iohexol 350 mg/mL 500 mL Btl (per mL) IV (08:52)
[2022-10-24 08:58] LABS: Troponin 5 2HR Delta -0.13 ABS# (0-10)
[2022-10-24 09:08] LABS: Lipase 45 U/L (13-60)
--- NOTE | 2022-10-24 11:12 | PC.NURSE ---
Attempted report to CSU. Nurse to call back.
--- NOTE | 2022-10-24 11:51 | ECG_ITS ---
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 Measurements Intervals [place] Rate: 157 P: 0 [place]: 0 QRS: 14 QRSD: 72 T: 80 QT: 274 QTc: 443 Interpretive Statements ATRIAL FIBRILLATION WITH RAPID VENTRICULAR RESPONSE LOW QRS VOLTAGE [QRS DEFLECTION < 0.5/1.0 mV IN LIMB/CHEST LEADS] SEPTAL MYOCARDIAL INFARCTION , OF INDETERMINATE AGE [40+ ms Q WAVE IN V1/V2] Compared to ECG 10/24/2022 05:57:46 Ventricular premature complex(es) no longer present Aberrant conduction of supraventricular beat(s) no longer present Myocardial infarct finding still present Electronically Signed On 10-24-2022 11:32:51 PRODUCT MANUFACTURING PROFESSIONAL by Randy Melton M.D. [id number]
[2022-10-24 12:49] LABS: Troponin 5 6HR 19.98 ng/L (0-15)
[2022-10-24 12:51] LABS: Troponin 5 6HR Delta 2.98 ng/L (0-12)
--- NOTE | 2022-10-24 13:56 | USCV_ITS ---
Abel Perez Age: 67 Gender: M : 1955 Exam Date: 10/24/2022 14:24 Ordering Phys: Spencer Parker MD Technologist: JENNIFER [place]am [place] [facility] [place]: afib BP: / HR: 65 Rhythm: Atrial fibrillation Technical Quality: Adequate MEASUREMENTS (Male / Female) Normal Values 2D ECHO LVOT Diameter 2.2 cm LV Ejection Fraction MOD 2C 62.3 % LV Ejection Fraction 2C AL 62.3 % LA Diameter 3.0 cm IVC Diameter 1.1 cm M-MODE Aortic Annulus Diameter 2.5 cm LA Ao Ratio MM 1.5 MV E Point Septal Separation 0.1 cm DOPPLER AV Peak Velocity 113.0 cm/s LVOT Peak Velocity 111.0 cm/s AV Area Cont Eq vti 3.8 cm squared AV Area Cont Eq pk 3.7 cm squared MV Area PHT 3.9 cm squared Mitral E to A Ratio 1.0 MV E' Velocity 39.5 cm/s Mitral E to MV E' Ratio 6.4 Mitral E to LV E' Lateral Ratio 7.8 Mitral E to LV E' Septal Ratio 5.4 TV Peak E Velocity 54.0 cm/s PV Peak Velocity 84.0 cm/s FINDINGS Left Ventricle Left ventricle is normal in size. LV systolic function is normal with EF of 55 to 60%. No regional wall motion abnormalities are seen. Right Ventricle Normal in size and function Right Atrium Normal in size Left Atrium Normal in size Mitral Valve Structurally normal mitral valve. Mild mitral regurgitation. Aortic Valve Aortic valve is thickened. No significant stenosis or regurgitation. Tricuspid Valve Not well visualized Pulmonic Valve Not well visualized Pericardium Normal Aorta Normal in size IVC Appears to be normal CONCLUSIONS Technically limited quality echocardiogram because of poor ultrasonic windows. LV systolic function is normal with EF of 55 to 60% Mild mitral regurgitation No comparison studies are available. Randy Melton MD (Electronically Signed) Final Date: 24 October 2022 19:45 S
--- NOTE | 2022-10-24 14:02 | P.HP_ITS ---
Providers/Chief Complaint Admitting Physician: Spencer Parker MD Primary Care Provider: Autumn Roman DO Chief Complaint: CP History of Present Illness Abel Perez is a 67 year old male with past medical history of COPD not on inhalers or oxygen, chronic with smoker, chronic alcohol use with up to 4 shots of hard liquor per day presents to the ER today because of ongoing chest uneasiness and pain for last few days getting worse today morning along with difficulty in breathing. In the ER he was found to be in A. fib with rapid ventricular response with slight hypotension which was treated with IV fluid bolus and Cardizem bolus and started on Cardizem drip. Shortly after Cardizem he reverted back to normal sinus rhythm with heart rate trending in 60s to 70s and blood pressure of 100 systolics. On examination patient lying comfortably in bed. Dates he been having chest pain with difficulty in breathing since 3 to 4 days getting worse today morning He thought he has been on dry. He complains of extreme fatigue and mild difficulty in breathing on exertion for many years getting worse lately. States he had a stress test many years ago which as per him was reported normal. Review of Systems General: Reports: 10 or more systems reviewed and unremarkable except in HPI and below Const: Denies: fever(s), chills, body aches, change in appetite, change in weight, malaise, night sweats, diaphoresis, change in sleep pattern, daytime sleepiness or snoring Eyes: Denies: change in vision, blurry vision, photophobia, eye discomfort or eye discharge ENMT: Denies: throat pain, enlarged tonsils, hoarseness, mouth pain, oral sores, dry mouth, tinnitus, nasal congestion or post nasal drip Card: Denies: chest pain, palpitations, irregular heart rhythm, edema, sw elling of feet/ankles, lightheadedness, syncope, pre-syncope, dyspnea on exertion, orthopnea, leg pain with exertion or acrocyanosis Resp: Denies: dyspnea, productive cough, non-productive cough, wheezing, stridor, pain on inspiration, change in phlegm color, hemoptysis or chest congestion GI: Denies: abdominal pain, nausea, vomiting, hematemesis, coffee ground emesis, dysphagia, heartburn, diarrhea, constipation, bloating, GI cramping, change in bowel habits, pain on defecation, hematochezia or melena : Denies: flank pain, difficulty urinating, dysuria, urinary frequency, urinary urgency, urinary hesitancy, urinary dribbling, difficulty starting urination, change in urine stream, nocturia or hematuria Musc: Denies: neck pain, back pain, extremity pain, joint pain, joint swelling, joint redness, joint stiffness or limited range of motion Neuro: Denies: headache(s), numbness in extremities, weakness in extremities, sensory changes, lack of coordination, difficulty walking, frequent falls, dizziness, vertigo, confusion, Slurred speech present, difficulty communicating thoughts or seizure-like activity Psych: Denies: anxiety, depression, mood swings, panic attacks, hopelessness or irritability Endo: Denies: polyuria, polydipsia, tired all the time, cold intolerance, exce ssive sweating, flushing or heat intolerance Malcolm/Lymph: Denies: easy bruising or easy bleeding All/Imm: Denies: tongue swelling, facial swelling or acute wheezing Medications/Allergies Home Medications Medication Instructions Recorded Confirmed Last Taken Type acetaminophen 500 mg tablet 1,000 mg PO Q6H PRN Pain 07/05/22 10/24/22 07/04/22 History Allergies Allergy/AdvReac Type Severity Reaction Status Date / Time No Known Allergies Allergy Verified 05/10/20 15:34 PFSH Acute PFSH: Medical History (Updated 10/24/22 @ 14:02 by Spencer Parker MD) Alcohol use COPD (chronic obstructive pulmonary disease) Renal stone Surgical History (Updated 10/24/22 @ 14:03 by Spencer Parker MD) No pertinent past surgical history Family History (Updated 10/24/22 @ 14:03 by Spencer Parker MD) Other CAD (coronary artery disease) Denies family history of Cancer Social History (Updated 10/24/22 @ 14:04 by Spencer Parker MD) Smoking and tobacco status: current every day smoker smokeless tobacco Smokeless tobacco details: weed Alcohol intake: current Alcohol intake frequency: 3 or more drinks per day Alcohol type: hard liquor Substance/Drug Use: current Substance/Drug use type: Marijuana Caregiver/support person: Yes Lives independently: Yes Vitals/I&O/Wt Last Vital Signs Temp 98.7 F 10/24/22 05:55 Pulse 73 10/24/22 11:00 Resp 15 10/24/22 11:00 BP 102/57 10/24/22 11:00 Pulse Ox 99 10/24/22 11:00 O2 Del Method 10/24/22 11:47 10/23/22 10/24/22 10/24/22 22:59 06:59 14:59 Intake Total 1000 / 1000 1011.667 / 1011.667 Balance 1000 / 1000 1011.667 / 1011.667 Weight last 48 hrs Weight 78.046 kg Weight 72.575 kg Physical Exam Narrative: General: No acute distress, AO x3 HEENT: PERRLA, pupils bilaterally equal and reactive Chest: B/l bronchial breath sounds, ocasional diffuse ronchi, equal good air entry bilaterally CVS: S1-S2 regular, no murmurs, no tachycardia, no gallops, no rubs Abdomen: Soft, nontender, no organomegaly, bowel sounds present Neuro: No focal deficits, no facial deformity, AO x3, power 5/5 in all limbs Data 10/24/22 06:00 10/24/22 06:00 A&P Assessment and plan (1) Atrial fibrillation, new onset: Back in NSR currently. Post cardizem infusion in ER. Check TSH alcohol level, drug screen, Echo. LAZARO-Vasc score 1 for age. Aspirin 81 mg PO QD. Will revise as per ECHO results (2) Atrial fibrillation with rapid ventricular response: (3) Acute hypotension: Most likely 2/2 RVR. Goal BP less than 140/90 mmhg with MAP over 65 (4) Near syncope: (5) Chest pain: Chronic smoker. Will need to r/o ACS. Cycle troponin. NPO after midnight for stress test in AM. Check A1c, Lipid panel. ASA as above (6) COPD (chronic obstructive pulmonary disease): No exacerbation Xoponex as needed. Will need inhalers on d/c (7) Alcohol use: More than 4 shots of hard liqour/day CIWA protocol Folate, thiamine Check B12, folate, TIBC Plan FC Cardiac diet, NPO after MN Heparin 5000 Q8h Famotidine Q12h for PUD Attestations Medical Necessity Statement*: Less than 2 MN for new onset afib while ACS is r/o Time Spent in Patient Care: Greater than 35 minutes Coding Level of Care Code Acute Code for Chg Fwd Diagnoses Atrial fibrillation, new onset I48.91 Atrial fibrillation with rapid ventricular response I48.91 Acute hypotension I95.9 Near syncope R55 Chest pain R07.9 COPD (chronic obstructive pulmonary disease) J44.9 Alcohol use Z78.9
--- NOTE | 2022-10-24 14:10 | ECG_ITS ---
[facility] Test Date: 2022-10-25 Pat Name: Abel Perez Department: Room: 106 Gender: Male Research Pharmacist: Amanda Marinfus : 1955 Requested By: Spencer Parker Order Number: [id number] Razia MD: Randy Melton M.D. Interpretive Statements NAME OF STUDY: LEXISCAN SESTAMIBI STRESS TEST INDICATION: [Unstable Angina, ] Procedure: At the baseline, the blood pressure was 135/78 mmHg with a heart rate of 60 bpm. The electrocardiogram showed normal sinus rhythm, normal axis with normal ST and T's. The Lexiscan was infused over a period of 20 seconds. A total of 0.4 mg of Lexiscan was infused. The stress phase was continued for a total of 5 minutes. Heart rate was at the end of stress phase was 84 bpm and a blood pressure of 113/53 mmHg. The EKG at the peak infusion revealed normal sinus rhythm with no significant ST-T wave changes. Sestamibi was injected 20 seconds after the Lexiscan infusion. Blood pressure at the end of recovery phase was 111/54 mmHg with a heart rate of 74 bpm. Conclusion: 1. Normal EKG response to Lexiscan infusion 2. No Lexiscan induced chest pain or cardiac arrhythmia. 3. Normal blood pressure and heart rate response. 4. Sestamibi/sestamibi perfusion scan pending; see separate report. Electronically Signed On 11-10-2022 17:31:27 VENEER GLUER by Randy Melton M.D. [email or web address]
[2022-10-24] MEDS: sodium chloride 0.9% 1,000 ML 50 ML IV (14:59)
[2022-10-24] MEDS: heparin 5,000 unit/mL INJ 1 mL 5000 UNIT SUBCUT ×2 (15:00→22:52)
[2022-10-24] MEDS: aspirin 81 mg EC Tablet PO (15:02)
[2022-10-24 15:22] LABS: Iron 224 ug/dL (59-158); Percent Saturation 66.8 % (20-50); Total Iron Binding Capacity 335 mcg/dl; Unsaturated Iron Binding 111 ug/dL (112-347)
[2022-10-24 15:26] LABS: Procalcitonin 0.08 ng/mL (0-0.5)
[2022-10-24 15:41] LABS: Thyroid Stimulating Hormone 2.69 uIU/mL (0.27-4.20); Vitamin B12 465 pg/mL (232-1245)
[2022-10-24 15:42] LABS: Alcohol Level < 10 mg/dL (0-10)
[2022-10-24 15:56] LABS: Estmated Average Glucose 103; Hemoglobin A1C 5.2 % (4.0-6.0)
[2022-10-24] MEDS: famotidine 20 mg Tablet PO (17:04)
[2022-10-24] MEDS: ipratropium 0.5 mg/2.5 mL Neb INHALATION (19:54)
[2022-10-24] MEDS: levalbuterol 0.63 mg/3 mL Neb INHALATION (19:54)
[2022-10-24 20:33] LABS: Add Urine Microscopic? NO; Charge for UA Resulting for Rev
[2022-10-24 20:46] LABS: Bilirubin Urine Neg (Negative); Blood Urine Neg (Negative); Glucose Urine UA Norm (Normal); Ketones Urine 1+ (Negative); Leukocyte Esterase Urine Negative (Negative); Nitrate Urine Negative (Negative); Protein Urine Neg (Negative); Specific Gravity, Urine 1.015 (1.005-1.030); Urine Appearance Clear (CLEAR); Urine Color Yellow (Yellow); Urobilinogen Urine Neg (Negative); pH Urine 5 (5-7)
[2022-10-24 21:06] LABS: Amphetamines Screen Urine Negative (Negative); Barbiturates Screen Urine Negative (Negative); Benzodiazepines Screen Urine Negative (Negative); Cocaine Screen Urine Negative (Negative); Opiate Screen Urine Negative (Negative); PCP Screen Urine Negative (Negative); THC Screen Urine Positive (Negative)
[2022-10-25] VITALS (16 sets, daily range): BP systolic 101–121; BP diastolic 57–72; PULSE 55–87; RESP 16–25; TEMP 36.4–36.6; O2SAT 94–100
[2022-10-25 04:30] LABS: Basophils % 0.3 %; Eosinophils # 0.1 10^3/uL (0.0-0.8); Eosinophils % 1.9 %; Hematocrit 38.3 % (42.0-52.0); Hemoglobin 12.4 g/dL (11.7-16.6); Lymphocytes # 1.6 10^3/uL (0.8-4.8); Lymphocytes % 28.5 %; Mean Corpuscular HGB Conc 32.4 g/dL (30.0-36.0); Mean Corpuscular Hemoglobin 34.9 pg (28.0-34.0); Mean Corpuscular Volume 107.9 fl (80-94); Mean Platelet Volume 10.2 fL (7.4-10.4); Monocytes # 0.6 10^3/uL (0.2-0.9); Monocytes % 9.6 %; Neutrophils # 3.41 10^3/uL (1.8-7.7); Neutrophils % 59.4 %; Nucleated Red Blood Cells % 0 %; Platelet Count 150 10^3/cmm (130-400); Red Blood Count 3.55 10^6/uL (4.1-5.3); Red Cell Distribution Width 11.9 % (12.1-15.1); White Blood Count 5.8 10^3/uL (4.0-10.0)
[2022-10-25] MEDS: levalbuterol 0.63 mg/3 mL Neb INHALATION ×2 (04:54→13:03)
[2022-10-25 05:00] LABS: Chol HDL Ratio 2.23 mg/dL (1.0-5.00); Cholesterol 158 mg/dL (0-200); HDL Cholesterol 71 mg/dL (60-100); LDL Cholesterol Calculated 73 mg/dL (50-129); Triglycerides 69 mg/dL (0-150); VLDL Cholestrol Calculation 14 mg/dL (0-30)
[2022-10-25 05:01] LABS: Alanine Aminotransferase 11 U/L (0-41); Albumin Level 3.1 g/dL (3.5-5.2); Alkaline Phosphatase 51 U/L (40-130); Anion Gap 14.8 (5-19); Aspartate Amino Transferase 20 U/L (0-40); Blood Urea Nitrogen 13 mg/dL (8-23); Calcium 7.7 mg/dL (8.5-10.5); Carbon Dioxide 22 mmol/L (22-29); Chloride 105 mmol/L (98-107); Globulin 1.5 g/dL (1.3-4.6); Glomerular Filtration Rate 96.4 mL/min (90-130); Glucose 90 mg/dL (65-115); Magnesium 1.5 mg/dL (1.7-2.3); Osmolality Calculated 286 mOsm/kg (285-295); Phosphorus 3.3 mg/dL (2.5-4.5); Potassium 3.8 mmol/L (3.5-5.1); Sodium 138 mmol/L (136-145); Total Protein 4.6 g/dL (6.6-8.7)
[2022-10-25 05:44] LABS: Folate Level 4.7 ng/mL (4.5-32.2)
[2022-10-25] MEDS: regadenoson 0.4 Mg/5 ml Syringe IVP (07:45)
[2022-10-25] MEDS: aspirin 81 mg EC Tablet PO (09:16)
[2022-10-25] MEDS: heparin 5,000 unit/mL INJ 1 mL 5000 UNIT SUBCUT (09:16)
[2022-10-25] MEDS: famotidine 20 mg Tablet PO ×2 (09:16→18:20)
[2022-10-25] MEDS: multivitamin therapeutic Tablet 1 TAB PO (09:16)
[2022-10-25] MEDS: thiamine 100 mg Tablet PO (09:17)
[2022-10-25] MEDS: folic acid 1 mg Tablet PO (09:17)
[2022-10-25] MEDS: sodium chloride 0.9% 1,000 ML 50 ML IV (09:33)
[2022-10-25] MEDS: LORazepam 2 mg/mL INJ 1 mL IVP ×2 (11:11→18:33)
[2022-10-25] MEDS: ipratropium 0.5 mg/2.5 mL Neb INHALATION ×2 (13:03→19:46)
--- NOTE | 2022-10-25 13:24 | PM.PN ---
Subjective Subjective: Patient was seen and examined this morning denied any chest pain shortness of breath. Medications: Medication Review Details: Generic Name Dose Route Start Last Admin Trade Name Freq PRN Reason Stop Dose Admin Aspirin 81 mg 10/24/22 14:00 10/25/22 09:16 Aspirin 81 Mg Ec Tablet PO 81 mg DAILY BLAKE Administration Docusate Sodium 100 mg 10/24/22 18:00 10/25/22 09:22 Docusate Sodium 100 Mg Capsule PO Not Given BID BLAKE Famotidine 20 mg 10/24/22 18:00 10/25/22 09:16 Famotidine 20 Mg Tablet PO 20 mg BID BLAKE Administration Folic Acid 1 mg 10/25/22 09:00 10/25/22 09:17 Folic Acid 1 Mg Tablet PO 1 mg DAILY BLAKE Administration Heparin Sodium (Po rcine) 5,000 unit 10/24/22 15:00 10/25/22 09:16 Heparin 5,000 Un it/Ml Inj 1 Ml SUBCUT 5,000 unit Q8H BLAKE Administration Diltiazem HCl 100 mg/ Sodium 100 mls @ 0 mls/h r 10/24/22 06:15 10/24/22 08:44 Chloride IV 0 mg/hr .Q0M BLAKE 0 mls/hr Titration Protocol Per Protocol Sodium Chloride 1,000 mls @ 50 ml s/hr 10/24/22 14:00 10/25/22 09:33 Sodium Chloride 0.9% IV 50 mls/hr .Q20H BLAKE Administration Ipratropium Bromid e 0.5 mg 10/24/22 14:00 10/25/22 13:03 Ipratropium 0.5 Mg/2.5 Ml Neb INHALATION 0.5 mg Q6H.RESP BLAKE Administration Levalbuterol HCl 0.63 mg 10/24/22 13:55 10/25/22 13:03 Levalbuterol 0.6 3 Mg/3 Ml Neb INHALATION 0.63 mg Q6H.RESP PRN Administration sob Lorazepam 2 mg 10/24/22 14:00 10/25/22 11:11 Lorazepam 2 Mg/M l Inj 1 Ml IVP 2 mg PRN PRN Administration WITHDRAWAL Protocol Multivitamins Ther apeutic 1 tab 10/25/22 09:00 10/25/22 09:16 Multivitamin The rapeutic Tablet PO 1 tab DAILY BLAKE Administration Thiamine Mononitra te 100 mg 10/25/22 09:00 10/25/22 09:17 Thiamine 100 Mg Tablet PO 100 mg DAILY BLAKE Administration Vitals/I&O/Wt Last Vital Signs Temp 97.8 F 10/25/22 03:00 Pulse 55 L 10/25/22 13:11 Resp 22 H 10/25/22 13:11 BP 101/61 10/25/22 13:11 Pulse Ox 100 10/25/22 13:11 O2 Del Method 10/25/22 13:11 10/24/22 10/25/22 10/25/22 22:59 06:59 14:59 Intake Total 360 / 1371.667 120 / 6732.776 4143.333 / 1128.333 Output Total 220 / 220 120 / 340 Balance 140 / 1151.667 0 / 6896.234 9136.333 / 1128.333 Weight last 48 hrs Weight 77.678 kg Weight 78.046 kg Weight 72.575 kg Physical Exam Const: COMMON NORMALS: patient oriented x3 HENMT: COMMON NORMALS: normocephalic and atraumatic HEAD & SCALP: normocephalic and atraumatic Resp: COMMON NORMALS: clear to auscultation bilaterally AUSCULTATION: clear to auscultation bilaterally Cardio: COMMON NORMALS: regular rate, regular rhythm, S1 normal heart sound present, S2 normal heart sound present, No gallops present (Cardio), No murmurs present (Cardio), No rub (Cardio) and Peripheral pulses 2+ throughout RATE: regular rate RHYTHM: regular rhythm HEART SOUNDS: S1 normal heart sound present and S2 normal heart sound present PERIPHERAL PULSES: Peripheral pulses 2+ throughout GI: COMMON NORMALS: Normal to inspection, nondistended, normoactive bowel sounds present, Soft to palpation, non-tender, No hepatosplenomegaly present and no masses AUSCULTATION: Yes normoactive bowel sounds PALPATION: Yes Soft to palpation and Yes No hepatosplenomegaly present RECTAL EXAM: Yes deferred Extremity: COMMON NORMALS: no clubbing, cyanosis or edema and no pedal edema Neuro: COMMON NORMALS: patient oriented x3 Data 10/25/22 03:10 10/25/22 03:10 A&P Assessment and plan (1) Atrial fibrillation, new onset: Back in NSR currently. Post cardizem infusion in ER. Check TSH alcohol level, drug screen, Echo. LAZARO-Vasc score 1 for age. Aspirin 81 mg PO QD. Will revise as per ECHO results (2) Atrial fibrillation with rapid ventricular response: (3) Acute hypotension: Most likely 2/2 RVR. Goal BP less than 140/90 mmhg with MAP over 65 (4) Near syncope: (5) Chest pain: Chronic smoker. Will need to r/o ACS. Cycle troponin. NPO after midnight for stress test in AM. Check A1c, Lipid panel. ASA as above (6) COPD (chronic obstructive pulmonary disease): No exacerbation Xoponex as needed. Will need inhalers on d/c (7) Alcohol use: More than 4 shots of hard liqour/day CIWA protocol Folate, thiamine Check B12, folate, TIBC Plan 67-year-old male with no significant past medical history of COPD, chronic smoking chronic alcohol use, came in with chief complaint of chest discomfort going on for the last few days accompanied with shortness of breath, was found to be in A. fib with RVR on admission currently being managed for. Assessment: Newly diagnosed A. fib with RVR: 2D echo: Technically difficult study, LV systolic function with EF of 55 to 60%, mild MR. 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 CT angio chest w abd pel: No aortic dissection no pulmonary embolism, apical fibrosis paraseptal emphysema, no consolidation. TSH: Normal , proBNP 308 Troponin trend: 1716-19 Patient was initially kept on Cardizem drip, currently converted to sinus rhythm. LAZARO-Vasc score 1 Continue telemetry monitoring Continue aspirin 81 mg p.o. daily Chest pain: Secondary to A. fib with RVR Currently denies any ongoing chest pain Nuclear stress test : Has failed to show any ischemia Continue aspirin History of COPD: Not on home oxygen, continue nebs, supplemental oxygen as History of chronic smoking and chronic alcohol use has been counseled. CODE STATUS: Full code DVT prophylaxis on lovenox. Attestations Medical Necessity Statement*: Patient [facility] for management of A. fib with RVR, chest pain, medical optimization. Coding Level of Care Code Acute Code for [facility] Fwd Diagnoses Atrial fibrillation, new onset I48.91 Atrial fibrillation with rapid ventricular response I48.91 Acute hypotension I95.9 Near syncope R55 Chest pain R07.9 COPD (chronic obstructive pulmonary disease) J44.9 Alcohol use Z78.9
--- NOTE | 2022-10-25 14:10 | NMCV_ITS ---
NM haresh perf SPECT r/s* [id number] Abel Perez Age: 67 Gender: M : 1955 Exam Date: 10/25/2022 06:50 Ordering Phys: Spencer Parker MD Technologist: IVAN Garcia Exam Location: [facility] Indications: CHEST PAIN STRESS TEST Please see separate stress test report in [facility] for full findings IMAGE PROTOCOL Rest/Stress 1 Lexiscan Day Radiopharmaceutical Dose (mCi) Administration Site Administered by Rest: Tc-99m 10.8 IV IVAN Jones Sestamibi Stress:Tc-99m 32.8 IV IVAN Jones Sestamibi Rest: 25-Oct-2022 60 Discovery 630 Stress: 25-Oct-2022 30 Discovery 630 0.4mg Lexiscan. Supine position only as patient was unable to lay prone. SPECT RESULTS Technical Quality: Excellent Raw Data Analysis: Normal Image Corrections: No attenuation or motion correction applied Summed Stress Score: 2 Summed Rest Score: 3 Summed Difference Score: 1 PERFUSION FINDINGS There is a small sized, fixed perfusion defect noted in the apical lateral wall. This is consistent with small sized prior infarct in the left circumflex artery territory. No evidence of ischemia. FUNCTIONAL RESULTS (calculated via Gated SPECT) Stress Image LV EF (%): 73 Stress EDV (mL):77 TID: 1.19 Stress ESV (mL):21 FUNCTIONAL FINDINGS: There is normal left ventricular systolic function. IMPRESSIONS 1. 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 No evidence of ischemia is seen 2. LV systolic function is normal Randy Melton MD (Electronically Signed) Final Date: 25 October 2022 09:49 S
[2022-10-26] VITALS (7 sets, daily range): BP systolic 135–144; BP diastolic 80–84; PULSE 67–86; RESP 16–22; TEMP 36.3–36.6; O2SAT 94–98
[2022-10-26 03:34] LABS: Basophils % 0.5 %; Eosinophils # 0.1 10^3/uL (0.0-0.8); Eosinophils % 1.9 %; Hematocrit 43.8 % (42.0-52.0); Hemoglobin 14.3 g/dL (11.7-16.6); Lymphocytes # 1.8 10^3/uL (0.8-4.8); Lymphocytes % 29.8 %; Mean Corpuscular HGB Conc 32.6 g/dL (30.0-36.0); Mean Corpuscular Volume 107.4 fl (80-94); Mean Platelet Volume 9.7 fL (7.4-10.4); Monocytes # 0.5 10^3/uL (0.2-0.9); Monocytes % 7.7 %; Neutrophils # 3.51 10^3/uL (1.8-7.7); Neutrophils % 59.8 %; Nucleated Red Blood Cells % 0 %; Platelet Count 148 10^3/cmm (130-400); Red Blood Count 4.08 10^6/uL (4.1-5.3); Red Cell Distribution Width 11.6 % (12.1-15.1); White Blood Count 5.9 10^3/uL (4.0-10.0)
[2022-10-26 03:47] LABS: Potassium 3.9 mmol/L (3.5-5.1)
[2022-10-26 04:10] LABS: Alanine Aminotransferase 12 U/L (0-41); Albumin Level 3.2 g/dL (3.5-5.2); Alkaline Phosphatase 62 U/L (40-130); Anion Gap 13.9 (5-19); Aspartate Amino Transferase 25 U/L (0-40); Blood Urea Nitrogen 10 mg/dL (8-23); Calcium 8.4 mg/dL (8.5-10.5); Carbon Dioxide 23 mmol/L (22-29); Chloride 104 mmol/L (98-107); Globulin 2.1 g/dL (1.3-4.6); Glomerular Filtration Rate 112.5 mL/min (90-130); Glucose 95 mg/dL (65-115); Osmolality Calculated 283 mOsm/kg (285-295); Sodium 137 mmol/L (136-145); Total Bilirubin 0.9 mg/dL (0.15-1.2); Total Protein 5.3 g/dL (6.6-8.7)
[2022-10-26] MEDS: acetaminophen 325 mg Tablet 650 MG PO (05:09)
[2022-10-26] MEDS: ipratropium 0.5 mg/2.5 mL Neb INHALATION (07:44)
[2022-10-26] MEDS: aspirin 81 mg EC Tablet PO (08:40)
[2022-10-26] MEDS: enoxaparin 40 mg/0.4 mL Syringe SUBCUT (08:40)
[2022-10-26] MEDS: thiamine 100 mg Tablet PO (08:41)
[2022-10-26] MEDS: famotidine 20 mg Tablet PO (08:41)
[2022-10-26] MEDS: docusate sodium 100 mg Capsule PO (08:41)
[2022-10-26] MEDS: folic acid 1 mg Tablet PO (08:41)
[2022-10-26] MEDS: multivitamin therapeutic Tablet 1 TAB PO (08:42)
--- NOTE | 2022-10-26 10:41 | PC.CHAP ---
Pastoral Care Encounter/Spiritual Assessment Type of Contact [] Declined gel coater visit [] Patient/Family/Request visit [] Outpatient visit [] Follow-up visit [] Physician referral [] Code/Alert [x] Routine visit [] Staff referral [] Actively dying [] Patient sleeping [] Family support [] [] Out of room [] Palliative care [] [] Receiving care in room [] Pre-surgical visit [] Trauma [] Long length of stay [] ICU visit [] Other: Relational/Emotional Strength [] Patient feels connected with others/family/visitors/staff [] Distress [] Loneliness/isolation [] Abandonment Spirituality of Patient [] Person of Maria M [] Attends Church of their Maria M [] Believes in Prayer [] Reads Bible or Anglican materials [x] There are Spiritual issues to be addressed [facility] Interventions [] Prayer [] Active listening [] Non-anxious presence [] Spiritual/emotional support [] Crisis/trauma care [] Spiritual counseling [] Bereavement support [] Provided bereavement packet [] Provided Bible/devotional materials [] Provided toy/stuffed animal, coloring book to patient or family member [] Provided Communion [] Anointing/[place] [] Salvation [x] Completed spiritual assessment [] Other: Impact on Illness or Injury [] Angry [] Fearful [] Anxious [] Often cries [] Exhaustion [] Unable to work [] Unable to attend gnosticism [] Unable to walk/stand [] Unable to read [] Unable to drive [] Unable to eat/drink [] Unable to sleep [] Unable to be with family [] Patient intubated [] Other: Summary Time spent with patient 5 min
--- NOTE | 2022-10-26 13:57 | P.DS_ITS ---
Discharge Providers Date of Admission: 10/24/22 10:53 Date of Discharge: October 26, 2022 Attending Provider at Admission: Spencer Parker MD Attending Provider at Discharge: Pete Major MD Primary Care Provider: Autumn Roman DO Diagnoses at Discharge Discharge Diagnosis (1) Atrial fibrillation, new onset: Status: Acute (2) Atrial fibrillation with rapid ventricular response: Status: Acute (3) Acute hypotension: Status: Acute (4) Near syncope: Status: Acute (5) Chest pain: Status: Acute (6) COPD (chronic obstructive pulmonary disease): Status: Acute (7) Alcohol use: Status: Acute Reason for Visit Reason for Visit: CP Hospital Course Hospital Course 67-year-old male with no significant past medical history of COPD, chronic smoking chronic alcohol use, came in with chief complaint of chest discomfort going on for the last few days accompanied with shortness of breath, was found to be in A. fib with RVR on admission, he was admitted for the management of newly diagnosed A. fib with RVR, chest pain likely secondary to A. 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 metoprolol 25 mg as needed once daily for heart rate greater than 110, in the event that he was having elevated heart rate >110 with symptoms, was asked to return to ER. He was also managed for acute hypotension secondary to A. fib with RVR, at the time of discharge blood pressure was decently controlled.He was also counseled regarding his chronic alcohol use. Overall patient responded well to above medical management.Overall he responded well to above medical management and was discharged in stable condition to home, he will follow with PCP as outpatient. Physical Exam Const: COMMON NORMALS: patient oriented x3 HENMT: COMMON NORMALS: normocephalic and atraumatic HEAD & SCALP: normocephalic and atraumatic Resp: COMMON NORMALS: clear to auscultation bilaterally AUSCULTATION: clear to auscultation bilaterally Cardio: COMMON NORMALS: regular rate, regular rhythm, S1 normal heart sound present, S2 normal heart sound present, No gallops present (Cardio), No murmurs present (Cardio), No rub (Cardio) and Peripheral pulses 2+ throughout RATE: regular rate RHYTHM: regular rhythm HEART SOUNDS: S1 normal heart sound present and S2 normal heart sound present PERIPHERAL PULSES: Peripheral pulses 2+ throughout GI: COMMON NORMALS: Normal to inspection, nondistended, normoactive bowel so unds present, Soft to palpation, non-tender, No hepatosplenomegaly present and no masses AUSCULTATION: Yes normoactive bowel sounds PALPATION: Yes Soft to palpation and Yes No hepatosplenomegaly present RECTAL EXAM: Yes deferred Extremity: COMMON NORMALS: no clubbing, cyanosis or edema and no pedal edema Neuro: COMMON NORMALS: patient oriented x3 Discharge Data Studies Completed and Pending Completed Studies During Hospitalization Category Date Time Status CTA chest CT abdomen pelvis [CT angio chest w abd pel w Cat Scan 10/24/22 08:40 Completed con] Stat Sestamibi Stress Test Request Routine Exams 10/24/22 14:10 Draft XR chest 1V portable [id number] Stat Exams 10/24/22 05:51 Completed NM haresh perf SPECT r/s* [id number] Routine Nuc Med 10/25/22 14:10 Completed CV. echo complete* [id number] Routine Ultrasound 10/24/22 13:56 Completed Radiology Impressions Chest X-Ray 10/24/22 05:51 IMPRESSION: Lungs are well aerated without a focal area of consolidation. Chest/Abdomen/Pelvis CT 10/24/22 08:40 IMPRESSION: 1. No dissection. No visualized embolism as characterized to the segmental level. 2. Apical fibrosis. Paraseptal emphysema. Minimal atelectasis right lung base greater than left. No focal consolidation. IMPRESSION: 1. Appendix normal. 2. No acute intra-abdominal process. No inflammatory process. No obstruction. 3. No free fluid within the pelvis or within the dependent portions of the peritoneum. COMMENTS: Consistent with the [place] [employer]'s Incidental Findings Committee white paper (J Am Britney Radiol 2018): Any incidental renal lesion less than 1 cm or classified as too small to characterize, or any incidental cystic renal lesion characterized as simple-appearing, is likely benign. No follow-up imaging is recommended for these lesions per consensus recommendations based on imaging criteria. Laboratory Results WBC 5.9 10^3/uL (4.0-10.0) 10/26/22 03:03 RBC 4.08 10^6/uL (4.1-5.3) L 10/26/22 03:03 Hgb 14.3 g/dL (11.7-16.6) 10/26/22 03:03 Hct 43.8 % (42.0-52.0) 10/26/22 03:03 MCV 107.4 fl (80-94) H 10/26/22 03:03 MCH 35.0 pg (28.0-34.0) H 10/26/22 03:03 MCHC 32.6 g/dL (30.0-36.0) 10/26/22 03:03 RDW 11.6 % (12.1-15.1) L 10/26/22 03:03 Plt Count 148 10^3/cmm (130-400) 10/26/22 03:03 MPV 9.7 fL (7.4-10.4) 10/26/22 03:03 Neut % (Auto) 59.8 % 10/26/22 03:03 Lymph % (Auto) 29.8 % 10/26/22 03:03 [place]ner % (Auto) 7.7 % 10/26/22 03:03 Eos % (Auto) 1.9 % 10/26/22 03:03 Baso % (Auto) 0.5 % 10/26/22 03:03 Neut # (Auto) 3.51 10^3/uL (1.8-7.7) 10/26/22 03:03 Lymph # (Auto) 1.8 10^3/uL (0.8-4.8) 10/26/22 03:03 [place]ner # (Auto) 0.5 10^3/uL (0.2-0.9) 10/26/22 03:03 Eos # (Auto) 0.1 10^3/uL (0.0-0.8) 10/26/22 03:03 Baso # (Auto) 0.0 10^3/uL (0.0-0.1) 10/26/22 03:03 Nucleated RBC % (auto) 0 % 10/26/22 03:03 Nucleated RBCs # 0.0 /100WBC 10/26/22 03:03 Sodium 137 mmol/L (136-145) 10/26/22 03:03 Potassium 3.9 mmol/L (3.5-5.1) 10/26/22 03:03 Chloride 104 mmol/L (98-107) 10/26/22 03:03 Carbon Dioxide 23 mmol/L (22-29) 10/26/22 03:03 Anion Gap 13.9 (5-19) 10/26/22 03:03 BUN 10 mg/dL (8-23) 10/26/22 03:03 Creatinine 0.7 mg/dL (0.7-1.2) 10/26/22 03:03 GFR Calculation 112.5 mL/min (90-130) 10/26/22 03:03 Glucose 95 mg/dL (65-115) 10/26/22 03:03 Estimat Average Glucose 103 10/24/22 06:00 Hemoglobin A1c 5.2 % (4.0-6.0) 10/24/22 06:00 Calculated Osmolality 283 mOsm/kg (285-295) L 10/26/22 03:03 Lactic Acid 2.0 mmol/L (0.5-2.2) 10/24/22 09:15 Calcium 8.4 mg/dL (8.5-10.5) L 10/26/22 03:03 Phosphorus 3.3 mg/dL (2.5-4.5) 10/25/22 03:10 Magnesium 1.5 mg/dL (1.7-2.3) L 10/25/22 03:10 Iron 224 ug/dL (59-158) H 10/24/22 06:00 TIBC 335 mcg/dl 10/24/22 06:00 % Saturation 66.8 % (20-50) H 10/24/22 06:00 Unsat Iron Binding 111 ug/dL (112-347) L 10/24/22 06:00 Total Bilirubin 0.9 mg/dL (0.15-1.2) 10/26/22 03:03 AST 25 U/L (0-40) 10/26/22 03:03 ALT 12 U/L (0-41) 10/26/22 03:03 Alkaline Phosphatase 62 U/L (40-130) 10/26/22 03:03 Creatine Kinase 178 U/L (39-308) 10/24/22 06:00 Troponin T Baseline 17 ng/L (0-15) H 10/24/22 06:00 Troponin T 120 Minute 16.87 ng/L (0-15) H 10/24/22 07:49 Delta Troponin T -0.13 ABS# (0-10) L 10/24/22 07:49 Troponin T Hi Sens 6Hr 19.98 ng/L (0-15) H 10/24/22 12:15 Troponin T Hi Sens 6Hr Delta 2.98 ng/L (0-12) 10/24/22 12:15 NT-Pro-B Natriuret Pep 308 pg/mL (0-125) H 10/24/22 06:00 Total Protein 5.3 g/dL (6.6-8.7) L 10/26/22 03:03 Albumin 3.2 g/dL (3.5-5.2) L 10/26/22 03:03 Globulin 2.1 g/dL (1.3-4.6) 10/26/22 03:03 Triglycerides 69 mg/dL (0-150) 10/25/22 03:10 Cholesterol 158 mg/dL (0-200) 10/25/22 03:10 LDL Cholesterol, Calc 73 mg/dL (50-129) 10/25/22 03:10 Total VLDL Cholesterol 14 mg/dL (0-30) 10/25/22 03:10 HDL Cholesterol 71 mg/dL (60-100) 10/25/22 03:10 Cholesterol/HDL Ratio 2.23 mg/dL (1.0-5.00) 10/25/22 03:10 Lipase 45 U/L (13-60) 10/24/22 06:00 Vitamin B12 465 pg/mL (232-1245) 10/24/22 06:00 Folate 4.7 ng/mL (4.5-32.2) 10/25/22 03:10 Procalcitonin 0.08 ng/mL (0-0.5) 10/24/22 06:00 TSH 2.69 uIU/mL (0.27-4.20) 10/24/22 06:00 Urine Color Yellow (Yellow) 10/24/22 20:15 Urine Appearance Clear (CLEAR) 10/24/22 20:15 Urine pH 5 (5-7) 10/24/22 20:15 Ur Specific [place] 1.015 (1.005-1.030) 10/24/22 20:15 Urine Protein Neg (Negative) 10/24/22 20:15 Urine Glucose (UA) Norm (Normal) 10/24/22 20:15 Urine Ketones 1+ (Negative) H 10/24/22 20:15 Urine Blood Neg (Negative) 10/24/22 20:15 Urine Nitrate Negative (Negative) 10/24/22 20:15 Urine Bilirubin Neg (Negative) 10/24/22 20:15 Urine Urobilinogen Neg mg/dL (Negative) 10/24/22 20:15 Ur Leukocyte Esterase Negative (Negative) 10/24/22 20:15 Urine Opiates Screen Negative ng/mL (Negative) 10/24/22 20:15 Ur Barbiturates Screen Negative ng/mL (Negative) 10/24/22 20:15 Ur Phencyclidine Scrn Negative ng/mL (Negative) 10/24/22 20:15 Ur Amphetamines Screen Negative ng/mL (Negative) 10/24/22 20:15 U Benzodiazepines Scrn Negative ng/mL (Negative) 10/24/22 20:15 Urine Cocaine Screen Negative ng/mL (Negative) 10/24/22 20:15 U Marijuana (THC) Screen Positive ng/mL (Negative) H 10/24/22 20:15 Ethyl Alcohol < 10 mg/dL (0-10) 10/24/22 06:00 Vitals Last Vital Signs Temp 97.8 F 10/26/22 12:54 Pulse 86 10/26/22 12:54 Resp 22 H 10/26/22 12:54 BP 135/80 10/26/22 12:54 Pulse Ox 94 10/26/22 12:54 O2 Del Method 10/26/22 12:00 FiO2 21 10/26/22 12:00 Discharge Plan Discharge Patient Disposition: Home Condition: Stable Prescriptions: New aspirin 81 mg Tablet,Delayed Release (Dr/Ec) 81 mg PO DAILY 30 Days Qty: 30 3RF famotidine 20 mg Tablet 20 mg PO BID 14 Days Qty: 28 0RF folic acid 1 mg Tablet 1 mg PO DAILY 30 Days Qty: 30 3RF Vitamin B-1 (mononitrate) 100 mg Tablet 100 mg PO DAILY 30 Days Qty: 30 3RF Thera 400 mcg Tablet 1 tab PO DAILY 30 Days Qty: 30 3RF metoprolol tartrate 25 mg tablet 25 mg PO PRN PRN (Reason: tachycardia) Qty: 30 1RF Rx Instructions: ONCE DAILY PRN FOR HR>110 Continued acetaminophen 500 mg Tablet 1,000 mg PO Q6H PRN (Reason: Pain) Discharge Orders: Discharge Order (Routine); Ordered 10/26/22 Ordered By: Pete Major Patient Instructions: Opioid Safety Discharge Attestations Time Spent in Discharge Care*: greater than 30 min Quality Metrics Clinical Quality Measures [ No reported AMI, CVA or VTE this stay] Coding Level of Care Code Acute Chg FW DC note Exam Detailed Diagnoses Atrial fibrillation, new onset I48.91 Atrial fibrillation with rapid ventricular response I48.91 Acute hypotension I95.9 Near syncope R55 Chest pain R07.9 COPD (chronic obstructive pulmonary disease) J44.9 Alcohol use Z78.9
== END 2022-10-26 13:44 | disposition home or self-care (01) ==
LOC: ER 10:36 → CSU 11:07
PROVIDERS: Emergency Medicine; Admitting Provider Student in an Organized Health Care Education/Training Program; Emergency Provider Emergency Medicine; PCP Family Medicine; Visit Provider Internal Medicine
DX: I48.91 Unspecified atrial fibrillation (principal); I95.9 Hypotension, unspecified; R55 Syncope and collapse; J44.9 Chronic obstructive pulmonary disease, unspecified; Z78.9 Other specified health status; F17.210 Nicotine dependence, cigarettes, uncomplicated; R07.89 Other chest pain
CPT/HCPCS: 36415; 71045; 71275; 74177; 78452; 80053; 80061; 80306; 80307; 81003; 82550; 82607; 82746; 83036; 83540; 83550; 83605; 83690; 83735; 83880; 84100; 84145; 84443; 84484; 85025; 93005; 93017; 93306; 94640; 96365; 96366; 96372; 96374; 96375; 96376; 99285; A9270; A9500; G0378; J1644; J1650; J2060; J2405; J2785; J3411; J3475; J3490; J7030; J7614; J7644; Q9967

== ENCOUNTER 2025-04-11 11:26 | Emergency (ER) | payer MEDICARE, SELFPAY ==
[2025-04-11] VITALS (11 sets, daily range): BP systolic 96–151; BP diastolic 62–93; PULSE 65–82; RESP 16–17; TEMP 37.1; O2SAT 98–100; BMI 25.0
--- NOTE | 2025-04-11 11:44 | ECG_ITS ---
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 Measurements Intervals [place] Rate: 69 P: 64 NC: 164 QRS: -18 QRSD: 71 T: 62 QT: 392 QTc: 422 Interpretive Statements SINUS RHYTHM WITH OCCASIONAL SUPRAVENTRICULAR PREMATURE COMPLEXES INDETERMINATE AXIS LOW QRS VOLTAGE IN PRECORDIAL LEADS [QRS DEFLECTION < 1.0 mV IN CHEST LEADS] Compared to ECG 10/24/2022 07:41:46 Indeterminate axis now present Low QRS voltage now present Intraventricular conduction delay no longer present Electronically Signed On 04-13-2025 14:13:03 CDT by Gisele Real M.D. [email or web address]
--- OUTSIDE RECORDS SUMMARY | 2025-04-11 11:53 | XMS_ITS | Clinical Summary ---
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 Gender Identity Not on file Sexual Orientation Not on file Last Filed Vital Signs Vital Sign Reading Time Taken Comments Blood Pressure 115/54 04/06/2022 12:17 AM CDT Pulse 80 04/06/2022 12:00 AM CDT Temperature 37.7 C (99.9 F) 04/05/2022 9:08 PM CDT Respiratory Rate 18 04/06/2022 12:17 AM CDT Oxygen Saturation 97% 04/06/2022 12:17 AM CDT Inhaled Oxygen Concentration - - Weight 73.5 kg (162 lb) 04/05/2022 9:08 PM CDT Height 170.2 cm (5' 7 ) 04/05/2022 9:08 PM CDT Body Mass Index 25.37 04/05/2022 9:08 PM CDT Plan of Treatment Health Maintenance Due Date Last Done Comments Pre-Diabetes and Diabetes Screening 1955 DTAP/TDAP/TD VACCINES (1 - Tdap) 1974 COLORECTAL SCREENING 2000 Colorectal Cancer Screening 2000 FIT-DNA Q 3 years 2000 FIT/FOBT Q 1 year 2000 Flex Sig/CT Colonography Q 5 years 2000 PNEUMOCOCCAL VACCINE 50+ YEARS (1 of 1 - PCV) 07/27/20 05 ZOSTER VACCINE (1 of 2) 2005 INFLUENZA VACCINE (#1) 2025 RSV VACCINE (60+ or ) (1 - 1-dose 75+ series) 2030 Insurance [facility]
--- OUTSIDE RECORDS SUMMARY | 2025-04-11 11:53 | XMS_ITS | Encounter Summary ---
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
--- OUTSIDE RECORDS SUMMARY | 2025-04-11 11:53 | XMS_ITS | Encounter Summary ---
Author Organization [facility] Address [address] [place] [address] Care Team Providers Care Oracle Distribution Consultant Name Role Phone Unavailable Primary Care Provider Unavailabl e Encounter Details Date Type Department Care Team (Latest Contact Info) Description 02/03/2001 Outpatient Historical [facility] Lauro Yee MD NO ADDRESS ON FILE Follow-up examination, following unspecified surgery (Primary Dx) Social History Tobacco Use Types Packs/Day Years Used Date Smoking Tobacco: Never Assessed Sex and Gender Information Value Date Recorded Sex Assigned at Not on file 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
--- OUTSIDE RECORDS SUMMARY | 2025-04-11 11:53 | XMS_ITS | Encounter Summary ---
Author Organization [facility] Address [address] [place] [address] Care Team Providers Care Meter Tester Primary Name Role Phone Unavailable Primary Care Provider Unavailabl e Encounter Details Date Type Department Care Team (Latest Contact Info) Description 02/28/2001 Outpatient Historical [facility] Lauro Yee MD NO ADDRESS ON FILE Follow-up examination, following unspecified surgery (Primary Dx) Social History Tobacco Use Types Packs/Day Years Used Date Smoking Tobacco: Never Assessed Sex and Gender Information Value Date Recorded Sex Assigned at Not on file 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
--- OUTSIDE RECORDS SUMMARY | 2025-04-11 11:53 | XMS_ITS | Encounter Summary ---
Author Organization [facility] Address [address] [place] [address] Care Team Providers Care Power Digger Operator Name Role Phone Unavailable Primary Care Provider Unavailabl e Encounter Details Date Type Department Care Team (Latest Contact Info) Description 09/28/2000 Outpatient Historical [facility] Family Medicine- [place] [address] [place] [address] Owen Joyner MD [address] [facility] [address] [place] [id number] Cellulitis and abscess of finger, unspecified (Primary Dx); Contusion of finger; Need vaccination-viral disease Social History Tobacco Use Types Packs/Day Years Used Date Smoking Tobacco: Never Assessed Sex and Gender Information Value Date Recorded Sex Assigned at Not on file 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
--- OUTSIDE RECORDS SUMMARY | 2025-04-11 11:53 | XMS_ITS | Encounter Summary ---
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
--- OUTSIDE RECORDS SUMMARY | 2025-04-11 11:53 | XMS_ITS | Clinical Summary ---
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
--- OUTSIDE RECORDS SUMMARY | 2025-04-11 11:53 | XMS_ITS | Encounter Summary ---
Author Organization [facility] Address [address] [place] [address] Care Team Providers Care Public Relations Counselor Name Role Phone Unavailable Primary Care Provider Unavailabl e Encounter Details Date Type Department Care Team (Latest Contact Info) Description 10/20/1999 Outpatient Historical [facility] Family Medicine- [place] [address] [place] [address] Jermaine Bojorquez, NO ADDRESS ON FILE Acute sinusitis, unspecified (Primary Dx); Contact with or exposure to unspecified communicable disease Social History Tobacco Use Types Packs/Day Years Used Date Smoking Tobacco: Never Assessed Sex and Gender Information Value Date Recorded Sex Assigned at Not on file 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
--- OUTSIDE RECORDS SUMMARY | 2025-04-11 11:53 | XMS_ITS | Encounter Summary ---
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
--- OUTSIDE RECORDS SUMMARY | 2025-04-11 11:53 | XMS_ITS | Encounter Summary ---
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
--- OUTSIDE RECORDS SUMMARY | 2025-04-11 11:53 | XMS_ITS | Encounter Summary ---
Author Organization [facility] Address [address] [place] [address] Care Team Providers Care Ruffler Name Role Phone Unavailable Primary Care Provider Unavailabl e Encounter Details Date Type Department Care Team (Latest Contact Info) Description 03/14/2001 Outpatient Historical [facility] Lauro Yee MD NO ADDRESS ON FILE Follow-up examination, following unspecified surgery (Primary Dx) Social History Tobacco Use Types Packs/Day Years Used Date Smoking Tobacco: Never Assessed Sex and Gender Information Value Date Recorded Sex Assigned at Not on file 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
--- OUTSIDE RECORDS SUMMARY | 2025-04-11 11:53 | XMS_ITS | Encounter Summary ---
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
--- OUTSIDE RECORDS SUMMARY | 2025-04-11 11:53 | XMS_ITS | Encounter Summary ---
Author Organization [facility] Address [address] [place] [address] Care Team Providers Care Parent Trainer Name Role Phone Unavailable Primary Care Provider Unavailabl e Encounter Details Date Type Department Care Team (Latest Contact Info) Description 10/27/1999 Outpatient Historical [facility] Family Medicine- [place] [address] [place] [address] Jermaine Bojorquez, NO ADDRESS ON FILE Counseling on other sexually transmitted diseases (Primary Dx); Contact with or exposure to unspecified communicable disease Social History Tobacco Use Types Packs/Day Years Used Date Smoking Tobacco: Never Assessed Sex and Gender Information Value Date Recorded Sex Assigned at Not on file 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
--- OUTSIDE RECORDS SUMMARY | 2025-04-11 11:53 | XMS_ITS | Encounter Summary ---
Author Organization [facility] Address [address] [place] [address] Care Team Providers Care Director Of Intercollegiate Athletics Name Role Phone Unavailable Primary Care Provider Unavailabl e Encounter Details Date Type Department Care Team (Late st Contact Info) Description 03/14/2001 Outpatient Historical [facility] Social History Tobacco Use Types Packs/Day Years Used Date Smoking Tobacco: Never Assessed Sex and Gender Information Value Date Recorded Sex Assigned at Not on file Legal Sex Male 3:59 AM HEALTH COUNSELOR Gender Identity Not on file Sexual Orientation Not on file documented as of this encounter Plan of Treatment Not on file documented as of this encounter Visit Diagnoses Not on filedocumented in this encounter
--- OUTSIDE RECORDS SUMMARY | 2025-04-11 11:53 | XMS_ITS | Encounter Summary ---
Author Organization [facility] Address [address] [place] [address] Care Team Providers Care Supervisor Securities Vault Name Role Phone Unavailable Primary Care Provider Unavailabl e Encounter Details Date Type Department Care Team (Latest Contact Info) Description 02/15/2001 Outpatient Historical [facility] Lauro Yee MD NO ADDRESS ON FILE Follow-up examination, following unspecified surgery (Primary Dx) Social History Tobacco Use Types Packs/Day Years Used Date Smoking Tobacco: Never Assessed Sex and Gender Information Value Date Recorded Sex Assigned at Not on file 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
--- OUTSIDE RECORDS SUMMARY | 2025-04-11 11:53 | XMS_ITS | Encounter Summary ---
Author Organization [facility] Address [address] [place] [address] Care Team Providers Care Director Voice Name Role Phone Unavailable Primary Care Provider Unavailabl e Encounter Details Date Type Department Care Team (Late st Contact Info) Description 08/13/[address] 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
--- OUTSIDE RECORDS SUMMARY | 2025-04-11 11:53 | XMS_ITS | Encounter Summary ---
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
--- OUTSIDE RECORDS SUMMARY | 2025-04-11 11:53 | XMS_ITS | Encounter Summary ---
Author Organization [facility] Address [address] [place] [address] Care Team Providers Care Air Brake Rigger Name Role Phone Unavailable Primary Care Provider Unavailabl e Encounter Details Date Type Department Care Team (Latest Contact Info) Description 02/29/2000 Outpatient Historical [facility] Family Medicine- [place] [address] [place] [address] Bree Burks NO ADDRESS ON FILE Sprain lumbar region (Primary Dx); Myalgia and myositis, unspecified Social History Tobacco Use Types Packs/Day Years Used Date Smoking Tobacco: Never Assessed Sex and Gender Information Value Date Recorded Sex Assigned at Not on file 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
--- NOTE | 2025-04-11 13:35 | W.ED.GENADLT ---
HPI - General Adult General: Chief complaint: General Medical Stated complaint: tingle in left arm, dizziness Time Seen by Provider: 04/11/25 13:19 History of Present Illness: 69-year-old male presents emergency room after an episode of feeling lightheaded dizzy and near syncopal episode this morning. Patient has a history of atrial fibrillation he did not have any sensation of rapid heart rate or palpitations he states around 9:00's morning he had a bit of a headache he was standing by the stove preparing some food got lightheaded and dizzy felt a little blurring of his vision got numbness and tingling bilaterally in the arms he denies any shortness of breath time he went and sat down this eventually resolved. He is completely resolved at this time. As the numbness and tingling began to resolve it initially cleared in the right arm first and then the left. At the time presentation he has no focal neurologic deficits. Associated symptoms: Deny chest pain, dyspnea or rash Related Data Previous Rx's ?Medication ?Instructions ?Recorded metoprolol tartrate 25 mg tablet 12.5 mg (1/2 x 25 mg) PO PRN PRN 04/11/25 tachycardia #30 tabs Allergies Allergy/AdvReac Type Severity Reaction Status Date / Time No Known Allergies Allergy Verified 05/10/20 15:34 Review of Systems Const: Denies: fever(s) or chills Card: Denies: chest pain Resp: Denies: dyspnea GI: Denies: abdominal pain : Denies: dysuria, urinary frequency or urinary urgency Musc: Denies: neck pain or back pain Skin/Breast: Denies: rash PFSH ED PFSH: Medical History Renal stone Alcohol use COPD (chronic obstructive pulmonary disease) Acute hypotension Atrial fibrillation, new onset Atrial fibrillation with rapid ventricular response Near syncope Chest pain Surgical History No pertinent past surgical history Family History Other CAD (coronary artery disease) Denies family history of Cancer Social History Smoking and tobacco/nicotine status: current every day tobacco/nicotine user smokeless tobacco Smokeless tobacco details: weed Alcohol intake: current Alcohol intake frequency: 3 or more drinks per day Alcohol type: hard liquor Substance/Drug Use: current Caregiver/support person: Yes Lives independently: Yes Physical Exam Const: GENERAL APPEARANCE: cooperative ORIENTATION/CONSCIOUSNESS: Yes awake, Yes oriented to person, Yes oriented to place and Yes oriented to time HENMT: COMMON NORMALS: normocephalic, atraumatic and hearing grossly normal bilaterally HEAD & SCALP: normocephalic and atraumatic Resp: COMMON NORMALS: normal respiratory effort, No retractions, No use of accessory muscles and clear to auscultation bilaterally AUSCULTATION: clear to auscultation bilaterally Cardio: COMMON NORMALS: regular rate, regular rhythm and No murmurs present (Cardio) RATE: regular rate RHYTHM: regular rhythm GI: COMMON NORMALS: Soft to palpation and No hepatosplenomegaly present AUSCULTATION: Yes normoactive bowel sounds PALPATION: Yes Soft to palpation, No Tenderness to palpation present (GI), No Guarding due to palpation present (GI) and Yes No hepatosplenomegaly present Extremity: COMMON NORMALS: normal to inspection, capillary refill normal, no clubbing, cyanosis or edema, no calf tenderness and no pedal edema Neuro: SENSORIUM/ORIENTATION: Yes oriented to person, Yes oriented to place and Yes oriented to time Skin: COMMON NORMALS: no rashes or lesions noted GENERAL SKIN EXAM: no rashes or lesions noted Course Vital Signs: Vital signs: Vital Signs Temperature 98.8 F 04/11/25 11:28 Pulse Rate 65 04/11/25 17:55 Respiratory Rate 16 04/11/25 17:55 Blood Pressure 136/74 04/11/25 17:55 Pulse Oximetry 99 04/11/25 17:55 Oxygen Delivery Me thod Room Air 04/11/25 11:28 MDM - General Adult Medical Decision Making Patient is feeling much better he has no neurologic deficits. Do not believe he had a TIA or stroke at this time his symptoms were bilateral. They resolved in her other short period of time. He recently has been increasing exercise and he is still taking his metoprolol suspect he may have had an episode of orthostasis. Workup here is negative. Will discharge him home going to have him decrease his metoprolol to 1/2 tablet daily and have him follow-up with his primary care doc within the next 7 to 10 days return if he has further problems Medical Records I reviewed the patient's medical records. Lab Data I reviewed the patient's lab results. 04/11/25 15:16 04/11/25 14:50 Radiology Impressions Chest X-Ray 04/11/25 14:08 IMPRESSION: No acute chest abnormality. Laboratory Results WBC 8.00 10^3/uL (3.29-11.43) 04/11/25 15:16 RBC 4.13 10^6/uL (3.85-5.65) 04/11/25 15:16 Hgb 14.00 g/dL (11.27-16.99) 04/11/25 15:16 Hct 41.1 % (37-53) 04/11/25 15:16 MCV 99.5 fl (82-101) 04/11/25 15:16 MCH 33.9 pg (27-33) H 04/11/25 15:16 MCHC 34.1 g/dL (30-55) 04/11/25 15:16 RDW 12.3 % (12.1-15.1) 04/11/25 15:16 Plt Count 205 10^3/cmm (157-399) 04/11/25 15:16 MPV 10.1 fL (7.4-10.4) 04/11/25 15:16 Neut % (Auto) 70.0 % 04/11/25 15:16 Lymph % (Auto) 16.9 % 04/11/25 15:16 Starke % (Auto) 11.8 % 04/11/25 15:16 Eos % (Auto) 0.6 % 04/11/25 15:16 Baso % (Auto) 0.6 % 04/11/25 15:16 Neut # (Auto) 5.60 10^3/uL (1.8-7.7) 04/11/25 15:16 Lymph # (Auto) 1.4 10^3/uL (0.8-4.8) 04/11/25 15:16 Starke # (Auto) 0.9 10^3/uL (0.2-0.9) 04/11/25 15:16 Eos # (Auto) 0.1 10^3/uL (0.0-0.8) 04/11/25 15:16 Baso # (Auto) 0.1 10^3/uL (0.0-0.1) 04/11/25 15:16 Nucleated RBC % (auto) 0 % 04/11/25 15:16 Nucleated RBCs # 0.0 /100WBC 04/11/25 15:16 Sodium 138 mmol/L (136-145) 04/11/25 14:50 Potassium 4.0 mmol/L (3.5-5.1) 04/11/25 14:50 Chloride 103 mmol/L (98-107) 04/11/25 14:50 Carbon Dioxide 15 mmol/L (22-29) L 04/11/25 14:50 Anion Gap 24.0 (5-19) H 04/11/25 14:50 BUN 14 mg/dL (8-23) 04/11/25 14:50 Creatinine 1.1 mg/dL (0.7-1.2) 04/11/25 14:50 GFR Calculation 66.4 mL/min (90-130) L 04/11/25 14:50 Glucose 80 mg/dL (65-115) 04/11/25 14:50 Calculated Osmolality 285 mOsm/kg (285-295) 04/11/25 14:50 Calcium 8.8 mg/dL (8.5-10.5) 04/11/25 14:50 Total Bilirubin 0.6 mg/dL (0.15-1.2) 04/11/25 14:50 AST 16 U/L (0-40) 04/11/25 14:50 ALT 9 U/L (0-41) 04/11/25 14:50 Alkaline Phosphatase 77 U/L (40-130) 04/11/25 14:50 Troponin T Baseline 9 ng/L (0-15) 04/11/25 14:50 Troponin T 120 Minute 9.97 ng/L (0-15) 04/11/25 16:27 Delta Troponin T 0.97 ABS# (0-10) 04/11/25 16:27 Total Protein 6.0 g/dL (6.6-8.7) L 04/11/25 14:50 Albumin 4.0 g/dL (3.5-5.2) 04/11/25 14:50 Globulin 2.0 g/dL (1.3-4.6) 04/11/25 14:50 Urine Color Yellow (Yellow) 04/11/25 14:27 Urine Appearance Clear (CLEAR) 04/11/25 14:27 Urine pH 5.5 (5-7) 04/11/25 14:27 Ur Specific [place] 1.024 (1.005-1.030) 04/11/25 14:27 Urine Protein Negative (Negative) 04/11/25 14:27 Urine Glucose (UA) Negative (Normal) 04/11/25 14:27 Urine Ketones 2+ (Negative) H 04/11/25 14:27 Urine Blood Negative (Negative) 04/11/25 14:27 Urine Nitrate Negative (Negative) 04/11/25 14:27 Urine Bilirubin Negative (Negative) 04/11/25 14:27 Urine Urobilinogen 1.0 mg/dL (Negative) 04/11/25 14:27 Ur Leukocyte Esterase Negative (Negative) 04/11/25 14:27 Urine RBC 0-2 /hpf (0-2) 04/11/25 14:27 Urine WBC 0-5 /hpf (0-5) 04/11/25 14:27 Ur Squamous Epith Cells 0-5 /hpf (0-5) 04/11/25 14:27 Urine Bacteria None seen /hpf (NONE) 04/11/25 14:27 Hyaline Casts 1.21 /lpf 04/11/25 14:27 All radiology interpretation(s) finalized by discharge Discharge Plan Discharge Patient Disposition: Home Clinical Impression: Orthostasis Condition: Stable Prescriptions: Changed metoprolol tartrate 25 mg tablet 12.5 mg PO PRN PRN (Reason: tachycardia) Qty: 30 1RF Rx Instructions: ONCE DAILY PRN FOR HR>110 Discharge Orders: Discharge ED (Routine); Ordered 04/11/25 Ordered By: Valentín Jay Referrals: Autumn Roman DO [Primary Care Provider, [employer] HEL[employer]] Discharge Diet: Usual diet Discharge Activity: Resume usual activity Patient Instructions: Opioid Safety, Pain Management, Patient Portal & Kelly Instructions Activity Restrictions/Additional Instructions: Thank you for choosing [facility] for your healthcare needs today. It is very important that you follow up as instructed or that you return to the Emergency Department should you have concerns or if your condition changes or worsens in any way. You were seen after an episode of orthostasis. Recommend if you take the metoprolol cut the dose in half until you follow-up with your primary care doctor. Evaluation for stroke and for coronary causes were negative in the emergency room. Print Language: Chinese Coding Level of Care Code ED Support Group Manager for Jani Heller
--- NOTE | 2025-04-11 14:08 | XR_ITS ---
WS: [id number] XR chest 1V portable [id number] REASON FOR EXAM: dyspnea/cough FINDINGS: Chest is unchanged compared to 10/23/2022. Mild tortuosity of the thoracic aorta. Mild cardiomegaly. Calcified granulomatous disease bilaterally. No acute pulmonary parenchymal or pleural abnormality. Moderate degenerative spondylosis in the thoracic spine. XR/XR chest 1V portable [id number] IMPRESSION: No acute chest abnormality.
--- NOTE | 2025-04-11 14:08 | ECG_ITS ---
[facility] Pat Name: Abel Perez Department: Room: Gender: Male Director Graphics: : 1955 Requested By: Valentín East Order Number: [id number] Razia MD: Gisele Real M.D. Measurements Intervals [place] Rate: 64 P: 66 AR: 159 QRS: 8 QRSD: 73 T: 50 QT: 421 QTc: 436 Interpretive Statements SINUS RHYTHM LOW QRS VOLTAGE IN PRECORDIAL LEADS [QRS DEFLECTION < 1.0 mV IN CHEST LEADS] Compared to ECG 04/11/2025 11:44:05 Indeterminate axis no longer present Electronically Signed On 04-13-2025 14:12:20 CDT by Gisele Real M.D. [email or web address]
[2025-04-11 15:14] LABS: Glucose Urine UA Negative (Normal); Nitrate Urine Negative (Negative); Specific Gravity, Urine 1.024 (1.005-1.030)
[2025-04-11 15:15] LABS: Troponin(5th) Baseline 9 ng/L (0-15)
[2025-04-11 15:19] LABS: Alanine Aminotransferase 9 U/L (0-41); Albumin Level 4.0 g/dL (3.5-5.2); Alkaline Phosphatase 77 U/L (40-130); Anion Gap 24.0 (5-19); Aspartate Amino Transferase 16 U/L (0-40); Blood Urea Nitrogen 14 mg/dL (8-23); Calcium 8.8 mg/dL (8.5-10.5); Carbon Dioxide 15 mmol/L (22-29); Chloride 103 mmol/L (98-107); Creatinine Clr Calc Pharmacy 63.6286; Globulin 2.0 g/dL (1.3-4.6); Glucose 80 mg/dL (65-115); Osmolality Calculated 285 mOsm/kg (285-295); Potassium 4.0 mmol/L (3.5-5.1); Sodium 138 mmol/L (136-145); Total Protein 6.0 g/dL (6.6-8.7)
[2025-04-11 15:19] LABS: Add Urine Microscopic? YES
[2025-04-11 15:22] LABS: Hematocrit 41.1 % (37-53); Hemoglobin 14.00 g/dL (11.27-16.99); Mean Corpuscular HGB Conc 34.1 g/dL (30-55); Mean Corpuscular Hemoglobin 33.9 pg (27-33); Mean Corpuscular Volume 99.5 fl (82-101); Nucleated Red Blood Cells % 0 %; Platelet Count 205 10^3/cmm (157-399); Red Blood Count 4.13 10^6/uL (3.85-5.65); White Blood Count 8.00 10^3/uL (3.29-11.43)
[2025-04-11 17:28] LABS: Troponin 5 2HR 9.97 ng/L (0-15); Troponin 5 2HR Delta 0.97 ABS# (0-10)
--- NOTE | 2025-04-11 17:40 | PC.NURSE ---
PATIENT AMBULATED WITHOUT DIFFICULTY TO BATHROOM.
== END 2025-04-11 17:56 | disposition home or self-care (01) ==
PROVIDERS: Emergency Provider Family Medicine; PCP Family Medicine
DX: I95.1 Orthostatic hypotension (principal); I48.91 Unspecified atrial fibrillation; J44.9 Chronic obstructive pulmonary disease, unspecified; Z79.899 Other long term (current) drug therapy
CPT/HCPCS: 36415; 71045; 80053; 81001; 84484; 85025; 93005; 96360; 96361; 99285; J7030